=== PATIENT | female | born 1980 | race African-American/Black ===

== ENCOUNTER 2024-08-17 16:15 | Outpatient (CLI) | payer OTHER, SELFPAY ==
--- NOTE | ~2024-08-17 | XR_ITS ---
EXAMINATION: XR chest 2V DATE: 08/17/2024 16:45 INDICATION: Acute upper respiratory infection. TECHNIQUE: Frontal and lateral views of the chest were obtained. COMPARISON: None. FINDINGS: There is no pneumonia, pleural effusion, or pneumothorax. The heart size is normal. IMPRESSION: 1. No acute cardiopulmonary disease. Reviewed, dictated and finalized at location A. R DIPPER
== END 2024-08-17 16:16 | disposition home or self-care (01) ==
LOC: ANHIMG 16:25
PROVIDERS: PCP Internal Medicine; Visit Provider Internal Medicine
DX: J06.9 Acute upper respiratory infection, unspecified (principal)
CPT/HCPCS: 71046

== ENCOUNTER 2025-02-13 00:31 | Emergency (ER) | payer OTHER, MEDICAID, SELFPAY ==
--- NOTE | ~2025-02-13 | XR_ITS ---
EXAMINATION: XR chest 1V portable DATE: 02/13/2025 01:03 INDICATION: Seizure TECHNIQUE: frontal view of the chest was obtained. COMPARISON: Chest radiograph dated 08/17/2024 FINDINGS: The lungs remain clear with no focal airspace opacities, pulmonary edema, pleural effusion or pneumot horax. The cardiomediastinal silhouette is normal. IMPRESSION: 1. No acute cardiopulmonary disease. Reviewed, dictated and finalized at location A.
[2025-02-13 00:37] VITALS: BP 124/81; PULSE 90; RESP 17; TEMP 36.9; O2SAT 100
--- NOTE | 2025-02-13 00:37 | ECG_ITS ---
Test Date: 2025-02-13 00:57:37 Measurements Intervals [place] Rate: 87 P: 38 NM: 176 QRS: 20 QRSD: 76 T: 33 QT: 356 QTc: 429 Interpretive Statements SINUS RHYTHM CONSIDER INFERIOR INFARCT, AGE INDETERMINATE BASELINE ARTIFACT- I, II, III, AVR, AVL, V1-V2 ABNORMAL ECG No previous ECG available for comparison Electronically Signed On 02-13-2025 06:56:40 CDT by Stephon Regalado D.O.
[2025-02-13 00:41] VITALS: O2SAT 100
[2025-02-13 01:01] VITALS: PULSE 87
[2025-02-13 01:07] LABS: Basophils Percent Auto 0.3 % (0.2-1.2); Eosinophils Absolute Auto 0.3 K/mm3 (0-0.3); Eosinophils Percent Auto 2.5 % (0-4.4); Hematocrit 40.2 % (37.0-47.0); Hemoglobin 13.2 g/dL (12.0-15.0); Immature Granulocyte Absolute 0.06 K/mm3 (0.00-0.031); Immature Granulocyte Percent A 0.5 % (0-0.5); Lymphocytes Absolute Auto 4.71 K/mm3 (0.9-3.2); Lymphocytes Percent Auto 37.4 % (18.3-44.2); Mean Corpuscular HGB Conc 32.8 g/dl (32-36); Mean Corpuscular Volume 82.4 fl (80-100); Mean Platelet Volume 10.2 fl (7.4-10.4); Monocytes Absolute Auto 0.9 K/mm3 (0.1-0.6); Monocytes Percent Auto 7.2 % (2.6-8.5); Neutrophils Absolute Auto 6.6 K/mm3 (1.3-6.7); Neutrophils Percent Auto 52.1 % (45.5-73.1); Platelet Count Result 234 k/mm3 (150-375); Red Blood Count 4.88 M/mm3 (4.2-5.4); Red Cell Distribution Width 13.4 % (11.5-14.5); White Blood Count 12.6 K/mm3 (4.5-10.0)
[2025-02-13 01:18] LABS: Alanine Aminotransferase 28 U/L (6-35); Albumin Level 4.2 g/dL (3.5-5.1); Alkaline Phosphatase 64 U/L (38-126); Anion Gap 7 mmol/L (4-12); Aspartate Amino Transferase 31 U/L (14-36); Bilirubin,Total 0.2 mg/dL (0.2-1.3); Blood Urea Nitrogen 12 mg/dL (7-17); Calcium 9.5 mg/dL (8.4-10.2); Carbon Dioxide 26 mmol/L (22-30); Chloride 104 mmol/L (98-107); Estimated CRCL calculation 112 ml/min; Estimated Glomerular Filt Rate > 60; Glucose 95 mg/dL (65-110); Potassium 3.9 mmol/L (3.4-5.0); Sodium 137 mmol/L (137-145)
--- OUTSIDE RECORDS SUMMARY | 2025-02-13 01:32 | XMS_ITS | Clinical Summary ---
Author Organization [facility] Office Center Address [address] [place] [address] Care Team Providers Care Signal Fitter Name Role Phone Alok Lucas MD Primary Care Provider [phone] Allergies Active Allergy Reactions Criticality Noted Date Comments Bee Pollen Edema Medium 08/06/2023 Bee Venom Protein (Honey Bee) Itching,Swelling Medium 03/23/2021 Iodinated Contrast Media Itching Low 07/07/2023 Penicillins Edema,Hives High Reaction: Edema, Hives, Shrimp Other (See comments) Low 05/14/2023 Throat closing Venom-Honey Bee Itching,Swelling Medium 08/06/2023 Medications albuterol HFA (PROVENTIL HFA,VENTOLIN HFA,PROAIR HFA) 90 mcg/actuation inhaler Inhale 2 puffs every 6 (six) hours as needed 0 Active EPINEPHrine 0.3 mg/0.3 mL auto-injection syringe Auvi-Q 0.3 mg/0.3 mL injection, auto-injector 0.3 mg SC/IM x1; Info: may repeat dose x1 after 5-15min Active Airsupra 90-80 mcg/actuation HFA aerosol inhaler 2 PUFFS UP TO 4 TIMES A DAYS NEEDED ONLY MUST GO TO THE ER IF NO RELIEF AFTER THE 4TH TREATMENT. 4 Active fluticasone propionate (FLONASE) 50 mcg/actuation nasal sprayIndication s:Obstructive sleep apnea Administer 2 sprays into each nostril daily 16 g 11 5 11/19/19 26 Active Active Problems Problem Noted Date Diagnosed Date Obstructive sleep apnea 04/29/2024 Assessment & Plan (11/18/2024 3:31 PM SCANNING COORDINATOR): We discussed the oral appliance and the inspire device in the patient is going to restart CPAP therapy at 6 cm water pressure. Her DME supplier is [facility] home care services. She will follow up here in 3 months to assess her progress. She was also complaining of some sinus congestion in the left nostril and I give her a trial of Flonase to use 2 puffs in each nostril at bedtime. Assessment & Plan (04/29/2024 10:29 AM CDT): Patient continue to wear her CPAP 6 cm water pressure while sleeping. Her DME is [facility] home care. The patient was encouraged to try using an xgvs-gjc-tfxtjhi dry mouth products. Sinus pressure 04/29/2024 Assessment & Plan (04/29/2024 10:29 AM CDT): I have prescribed the patient has Z-Oli due to the sinus pressure and colored drainage. The patient will call back in if her symptoms do not improve or get worse. 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 no provoking factors elicited. 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 shaking type suspicious for non-epileptic however post-ictal state and elke's paralysis are suggestive of epilepsy. Staring type are more concerning for non-epileptic events. Currently patient is presenting with what sounds like a non-provoked seizure so we will increase her depakote. As her AEDs continue to be increased and control of her epilepsy is not obtained - consideration should be given to inpatient monitoring Resolved Problems Problem Noted Date Diagnosed Date Resolved Date Snoring 01/15/2024 04/29/2024 Assessment & Plan (01/15/2024 9:14 AM CDT): The patient presents with snoring, excessive daytime hypersomnia and insomnia. I have recommended proceeding with a nocturnal polysomnogram with a split night protocol if necessary and no MSLT. She will follow up here in 3 months. Encounters Date Type Department Care Team Description 11/18/2024 3:15 PM SCANNING COORDINATOR Office Visit [facility] Medical Group Pulmonary [address] [address] Cristian Gonzalez MD Obstructive sleep apnea (Primary Dx) from Last 3 Months Immunizations Immunization Administration Dates Next Due Tdap 07/06/2022(Deferred: Patient Ref used) Surgical History Surgery Date Site/Laterality Comments SECTION SECTION SECTION TUBAL LIGATION ROBOTIC ASSISTED HYSTERECTOMY 12/14/2017 - 01/12/2018 HELGA CHANDLER, UVS for menorrhagia. benign ENDOMETRIAL ABLATION 09/15/2016 - 09/14/2017 D&C FIRST TRIMESTER / TX INCOMPLETE / MISSED / SEPTIC / INDUCED UMBILICAL HERNIA REPAIR HERNIA REPAIR 09/15/2019 - 09/14/2020 Dr Stephenson HYSTERECTOMY Medical History Medical History Date Comments Epilepsy without status epil epticus, not intractable (HCC) Epilepsy - (Added by TW Conv ) Cataract Cataract of both eyes - (Added by TW Conv) Asthma Migraines Stroke (cerebrum) (HCC) Anemia Family History Medical History Relation Name Comments Asthma Daughter 1 Arrdavidh Irene Asthma Daughter 2 Josi [place] Alcohol abuse Father Meza Mele Hypertension Father Meza Mele Migraines Father Meza [place] Arthritis Maternal Grandmother Latoya Nava Hypertension Maternal Grandmother Latoya Nava Memory loss Maternal Grandmother Latoya Nava Anemia Mother Caitlin Nava Asthma Mother Caitlin Nava COPD Mother Caitlin Nava Hypertension Mother Caitlin Nava Migraines Mother Caitlin Nava Stroke Mother Caitlin Nava Cancer Mother's Brother Ender Nava Cancer Mother's Sister 1 Maggie Zambrano Memory loss Mother's Sister 2 Chelsy Young Ovarian cancer Other Anemia Sister 1 Marie Nava Migraines Sister 1 Marie Nava Anemia Sister 2 Lamin Nava Asthma Sister 2 Lamin Nava Diabetes Sister 2 Lamin Nava Asthma Son Charlie Bonilla Breast cancer Neg Hx Relation Name Status Comments Daughter 1 Meenakshi Bonilla Daughter 2 Josi [place] Father Derrick Shabazz Maternal Grandmother Latoya Nava Mother Caitlin Nava Mother's Brother Ender Nava Mother's Sister 1 Maggie Zambrano Mother's Sister 2 Chelsy Young Other Sister 1 Suraja Nava Sister 2 Lamin Nava Son Charlie Bonilla Social History Tobacco Use Types Packs/Day Years Used Date Smoking Tobacco: Never Cigarettes Smokeless Tobacco: Never Tobacco Cessation:Counseling Given: Not Answered Alcohol Use Standard Drinks/Week Comments Not Currently 0 (1 standard drink = 0.6 oz pur e alcohol) AUDIT-C Answer Date Recorded Q1: How often do you have a drink containing alc ohol? Never 05/08/2022 Average Number of Drinks Not on file 022 Frequency of Binge Drinking Not on file 04/16 Personal Safety Answer Date Recorded Have you ever been in or are you currently in a harmful physical or emotional relationship or is someone making you feel afraid or unsafe? Denies 02/05/2024 Comments No Sex and Gender Information Value Date Recorded Sex Assigned at Not on file Legal Sex Female 6:28 PM SCANNING COORDINATOR Gender Identity Female 12/25/2021 7:05 AM CDT Sexual Orientation Straight 12/25/2021 7: 05 AM CDT Obstetrics History Para Term AB IAB SAB Ectopic Multiple Livin g Live Births 5 3 3 Date Outcome GA Total Labor Labor/2nd/3rd Weight Sex Type Anes PTL Laly A1 A5 Name Clin Term Term Term Comments Last Filed Vital Signs Vital Sign Reading Time Taken Comments Blood Pressure 120/72 11/18/2024 3:07 PM SCANNING COORDINATOR Pulse 93 11/18/2024 3:07 PM SCANNING COORDINATOR Temperature 36.3 C (97.3 F) 11/18/2024 3:07 PM SCANNING COORDINATOR Respiratory Rate 16 11/18/2024 3:07 PM SCANNING COORDINATOR Oxygen Saturation 98% 11/18/2024 3:07 PM SCANNING COORDINATOR Inhaled Oxygen Concentration - - Weight 107.5 kg (237 lb) 11/18/2024 3:07 PM SCANNING COORDINATOR Height 170.2 cm (5' 7) 11/18/2024 3:07 PM SCANNING COORDINATOR Body Mass Index 37.12 11/18/2024 3:07 PM SCANNING COORDINATOR Plan of Treatment Health Maintenance Due Date Last Done Comments Depression Screening 1982 Hepatitis C Screening 1982 Varicella Vaccines (1 of 2 - 13+ 2-dose series) 11/25/1995 Hepatitis B Screening 2000 Pneumococcal vaccine <65 (1 of 2 - PCV) 2001 DTaP/Tdap/Td Vaccine (7 - Td or Tdap) 08/08/2021 08/08/2011, 08/15/2010, 05/15/1993, Additional history exists Breast Cancer Screening-Mammogram 12/12/2024 12/13/2023, 12/13/2023, 01/02/2023, Additional history exists Influenza Vaccine (Season Ended) 2025 Regular Well Visit/Exam 18-64 05/26/2025 05/26/2024, 05/08/2022, 03/23/2021, Additional history exists Cervical Cancer Screening Discontinued 2020, 01/23/2015, 01/17/2014 HPV Vaccines Aged Out No longer eligi ble based on patient's age to complete this topic Procedures Procedure Name Priority Date/Time Associated Diagnosis Comments SCREENING MAMMOGRAM BILATERAL W KAMALJIT Schedule Routine, Read Routine (OP Routine) 12/13/2023 9:35 AM CDT Screening mammogram, encounter for PAP AND HIGH RISK HPV, REFLEX TO GENOTYPING Routine 03/23/2021 3:23 PM CDT Well woman exam from Last 3 Months or Most Recently Relevant to Health Maintenance Results * Screening Mammogram Bilateral W Kamaljit (12/13/2023 9:35 AM CDT) Anatomical Region Laterality Modality Breast Bilateral Mammography Impressions 12/15/2023 8:53 AM CDT BI-RADS ATLAS category (overall): 1 - Negative There is no mammographic evidence of malignancy. A 1 year screening mammogram is recommended. The patient has been or will be contacted. We recommend annual screening mammography for women at average risk of breast cancer beginning at age 40, based on guidelines of the [employer] (ACR Practice Parameter for the Performance of Screening and Diagnostic Mammography) and [employer]. For women with and elevated risk of breast cancer, please refer to the ACR Practice Parameter for specific screening recommendations. The patient will be entered into a reminder system with a target due date of 1 year for her next screening exam. Narrative 12/15/2023 8:53 AM CDT Screening Mammogram Bilateral W Kamaljit: 12/13/23 The study was acquired using full field digital technology and interpreted from soft copy. 2D digital mammographic views, as well as 3D digital tomosynthesis were performed in the CC and MLO projections. CLINICAL: Screening mammogram, encounter for. No relevant medical history has been documented for this patient. History of breast cancer in Neg Hx. COMPARISONS: 06/19/2023 Diagnostic Mammogram Left W Kamaljit 01/02/2023 Screening Mammogram Bilateral W Kamaljit 01/01/2022 Diagnostic Mammogram Bilateral W Kamaljit BREAST TISSUE: The breasts have scattered areas of fibroglandular density. FINDINGS: There is no new suspicious finding in either breast on mammogram. us Self Screening Mammogram IMG MAMMO PROCEDURES Fi nal Result * Pap and High Risk HPV, reflex to Genotyping (03/23/2021 3:23 PM CDT) CLINICAL INFORMATION: SCREENING [facility] LMP HYST [facility] Previous Pap INFORMATION NOT PROVIDED [facility] [[email or web address] StudyEgg [facility] Prev. Bx INFORMATION NOT PROVIDED [facility] SOURCE: Vagina [facility] [[email or web address] Diagnostic [facility] Pap, specimen adequacy SATISFACTORY FOR EVALUATION [facility] HPV interp Negative for intraepithelial lesion or malignancy. [facility] Infection: Trichomonas vaginalis identified. [facility] Game Agent LMT, CT(ASCP) CT screening location: [place] [address] [place] [id number] [place] [address] Review vice president of instruction KMY, CT(ASCP) CT screening location: [place] [address] [place] [address] [facility] [[email or web address] Diagnostic [facility] Comment [facility] [[email or web address] Diagnostic [facility] Comment: EXPLANATORY NOTE: The Pap is a screening test for cervical cancer. It is not a diagnostic test and is subject to false negative and false positive results. It is most reliable when a satisfactory sample, regularly obtained, is submitted with relevant clinical findings and history, and when the Pap result is evaluated along with historic and current clinical information. Human papillomavirus DNA, High Risk E6/E7 Not Detected NOT DETECTED [facility] [[email or web address]] Diagnostic [facility] Comment: Not Detected High Risk HPV types (16,18,31,33,35,39,45,51,52, 56,58,59,66,68) were not detected. Other HPV types which cause anogenital lesions may be present. The significance of the other types of HPV in malignant processes has not been established. Methodology: Real Time PCR Swab 03/23/2021 3:23 PM CDT 03/26/2021 8:18 AM CDT Bradford Capps MD LAB CYTOLOGY ORDERABLES Final Result [place] [address] [place] [address] [employer] [address] [facility] [place] [address] from Last 3 Months or Most Recently Relevant to Health Maintenance Insurance [employer] [facility] H[facility]/PPO Address: [address] [address] [place] [address] [facility] Care Teams Signal Fitter Relationship Specialty Start Date End Date Alok Lucas MD [address] [facility] [address] [place] [address] PCP - General Internal Medicine 09/27/20
--- OUTSIDE RECORDS SUMMARY | 2025-02-13 01:32 | XMS_ITS | Encounter Summary ---
Author Organization [facility] Facility Care Team Providers Care Wire Coiler Machine Operator Name Role Phone Brian Rivas CORRECTIONAL PROGRAM OFFICER Primary Care Provider [phone] Shailesh Styles MD Primary Care Provider Alok Lucas MD Primary Care Provider [phone] Encounter Details Date Type Department Care Team (Latest Contact Info) Description 05/12/2017 Orders Only [facility] CLINCONV Provider, MD Will [address] [place] [id number] Social History Tobacco Use Types Packs/Day Years Used Date Smoking Tobacco: Never Comments Unknown Sex and Gender Information Value Date Recorded Sex Assigned at Not on file Legal Sex Female 6:28 PM SUPERVISOR STAGE CARPENTRY Gender Identity Female 12/25/2021 7:05 AM CDT Sexual Orientation Straight 12/25/2021 7: 05 AM CDT documented as of this encounter Plan of Treatment Not on file documented as of this encounter Procedures Procedure Name Priority Date/Time Associated Diagnosis Comments SCAN - PATHOLOGY 05/20/2017 12:0 0 AM CDT PROCEDURE - RESULT 05/12/2017 12 :00 AM CDT documented in this encounter Results * SCAN - PATHOLOGY (05/20/2017 12:00 AM CDT) Narrative 05/20/2017 12:00 AM CDT Ordered by an unspecified provider. Historical Provider Final Res ult * PROCEDURE - RESULT (05/12/2017 12:00 AM CDT) Narrative 05/12/2017 12:00 AM CDT Ordered by an unspecified provider. us Historical Provider Final Res ult documented in this encounter Visit Diagnoses Not on filedocumented in this encounter Additional Health Concerns Infection Onset Date Last Indicated Resolved Time MRSA Comment:2008 on back treated 05/09/2017 05/08/2017 05/02/2021 5:00 AM CDT documented as of this encounter Care Teams Wire Coiler Machine Operator Relationship Specialty Start Date End Date Brian Rivas NP PCP - General 10/26/18 05/02/20 Shailesh Styles MD PCP - General 05/03/20 09/26/20 Alok Lucas MD [address] [facility] [address] [place] [address] PCP - General Internal Medicine 09/27/20 documented as of this encounter
--- OUTSIDE RECORDS SUMMARY | 2025-02-13 01:32 | XMS_ITS | Encounter Summary ---
Author Organization [facility] Facility Care Team Providers Care Optic Fibre Drawer Name Role Phone Brian Rivas EQUIPMENT TECH Primary Care Provider [phone] Shailesh Styles MD Primary Care Provider [phone] Alok Lucas MD Primary Care Provider [phone] Encounter Details Date Type Department Care Team (Latest Contact Info) Description 01/06/2018 Orders Only MMG CLINCONV Provider, MD Will [address] [place] [address] Social History Tobacco Use Types Packs/Day Years Used Date Smoking Tobacco: Never Comments Unknown Sex and Gender Information Value Date Recorded Sex Assigned at Not on file Legal Sex Female 6:28 PM PLANISHING HAMMER OPERATOR Gender Identity Female 12/25/2021 7:05 AM CDT Sexual Orientation Straight 12/25/2021 7: 05 AM CDT documented as of this encounter Plan of Treatment Not on file documented as of this encounter Procedures Procedure Name Priority Date/Time Associated Diagnosis Comments SCAN - PATHOLOGY 01/06/2018 12:0 0 AM CDT documented in this encounter Results * SCAN - PATHOLOGY (01/06/2018 12:00 AM CDT) Narrative 01/06/2018 12:00 AM CDT Ordered by an unspecified provider. us Historical Provider Final Res ult documented in this encounter Visit Diagnoses Not on filedocumented in this encounter Additional Health Concerns Infection Onset Date Last Indicated Resolved Time MRSA Comment:2008 on back treated 05/09/2017 05/08/2017 05/02/2021 5:00 AM CDT documented as of this encounter Care Teams Optic Fibre Drawer Relationship Specialty Start Date End Date Brian Rivas NP PCP - General 10/26/18 05/02/20 Shailesh Styles MD PCP - General 05/03/20 09/26/20 Alok Lucas MD [address] [facility] [address] [place] [address] PCP - General Internal Medicine 09/27/20 documented as of this encounter
--- OUTSIDE RECORDS SUMMARY | 2025-02-13 01:32 | XMS_ITS | Referral Summary ---
Author Organization [facility] Medical Office Center Address [address] [place] [address] Care Team Providers Care Manager Care Management Name Role Phone Alok Lucas MD Primary Care Provider Encounters Date Type Department Care Team Description 11/18/2024 3:15 PM DUST MOP MAKER Office Visit [facility] Medical Group Pulmonary [place] [address] [place] [address] [place] [phone] Cristian Gonzalez MD Obstructive sleep apnea (Primary Dx) from Last 3 Months Allergies Active Allergy Reactions Criticality Noted Date [...] 04/29/2024 Assessment & Plan (11/18/2024 3:31 PM DUST MOP MAKER): We discussed the oral appliance and the inspire device in the patient is going to restart CPAP therapy at 6 cm water pressure. Her DME supplier is [facility] home care services. She will follow up [...] water pressure while sleeping. Her DME is [facility] home care. The patient was encouraged to try using an ysib-elh-zjiddik dry mouth products. Sinus pressure 04/29/2024 Assessment [...] will follow up here in 3 months. Immunizations Immunization Administration Dates Next Due Tdap 07/06/2022(Deferred: Patient Ref used) Social History Tobacco Use Types Packs/Day Years [...] on file Legal Sex Female 6:28 PM DUST MOP MAKER Gender Identity Female 12/25/2021 7:05 AM CDT Sexual Orientation Straight 12/25/2021 7: 05 AM CDT Last Filed Vital Signs Vital Sign Reading Time Taken Comments Blood Pressure 120/72 11/18/2024 3:07 PM DUST MOP MAKER Pulse 93 11/18/2024 3:07 PM DUST MOP MAKER Temperature 36.3 C (97.3 F) 11/18/2024 3:07 PM DUST MOP MAKER Respiratory Rate 16 11/18/2024 3:07 PM DUST MOP MAKER Oxygen Saturation 98% 11/18/2024 3:07 PM DUST MOP MAKER Inhaled Oxygen Concentration - - Weight 107.5 kg (237 lb) 11/18/2024 3:07 PM DUST MOP MAKER Height 170.2 cm (5' 7) 11/18/2024 3:07 PM DUST MOP MAKER Body Mass Index 37.12 11/18/2024 3:07 PM DUST MOP MAKER Plan of Treatment Not on file Procedures Procedure Name Priority Date/Time Associated Diagnosis Comments SCREENING MAMMOGRAM BILATERAL W MARLEEN Schedule Routine, Read Routine (OP Routine) 12/13/2023 9:35 AM CDT Screening mammogram, encounter for PAP AND HIGH RISK HPV, REFLEX TO GENOTYPING Routine 03/23/2021 3:23 PM CDT Well woman exam from Last 3 Months or Most Recently Relevant to Health Maintenance Results * Screening Mammogram Bilateral W Marleen (12/13/2023 9:35 AM CDT) Anatomical Region Laterality [...] age 40, based on guidelines of the [place] [employer] (ACR Practice Parameter for the Performance of Screening and Diagnostic Mammography) and [place]. For women with and elevated risk of breast cancer, please refer to the ACR Practice Parameter for specific screening recommendations. The patient will be entered into a reminder system with a target due date of 1 year for her next screening exam. Narrative 12/15/2023 8:53 AM CDT Screening Mammogram Bilateral W Marleen: 12/13/23 The study was acquired using full field digital technology and interpreted from soft copy. 2D digital mammographic views, as well as 3D digital tomosynthesis were performed in the CC and MLO projections. CLINICAL: Screening mammogram, encounter for. No relevant medical history has been documented for this patient. History of breast cancer in Neg Hx. COMPARISONS: 06/19/2023 Diagnostic Mammogram Left W Marleen 01/02/2023 Screening Mammogram Bilateral W Marleen 01/01/2022 Diagnostic Mammogram Bilateral W Marleen BREAST TISSUE: The breasts have scattered areas of fibroglandular density. FINDINGS: There is no new suspicious finding in either breast on mammogram. us Self Screening Mammogram IMG MAMMO PROCEDURES Fi nal Result * Pap and High Risk HPV, reflex to Genotyping (03/23/2021 3:23 PM CDT) CLINICAL INFORMATION: SCREENING [facility] LMP HYST [facility] Previous Pap INFORMATION NOT PROVIDED [facility] Prev. Bx INFORMATION NOT PROVIDED [facility] SOURCE: Vagina [facility] Pap, specimen adequacy SATISFACTORY FOR EVALUATION [facility] HPV interp Negative for intraepithelial lesion or malignancy. [facility] Infection: Trichomonas vaginalis identified. [facility] Aerial Photogrammetrist LMT, CT(ASCP) CT screening location: [place] [address] [place] [id number] [place] [address] Review complex care nurse KMY, CT(ASCP) CT screening location: [place] [address] [address] [place] [address] [place] [address] [facility] Comment: EXPLANATORY NOTE: The Pap is a [...] High Risk E6/E7 Not Detected NOT DETECTED [facility] Comment: Not Detected High Risk HPV types (16,18,31,33,35,39,45,51,52, 56,58,59,66,68) were not detected. Other HPV types which cause anogenital lesions may be present. The significance of the other types of HPV in malignant processes has not been established. Methodology: Real Time PCR Swab 03/23/2021 3:23 PM CDT 03/26/2021 8:18 AM CDT Bradford Capps MD LAB CYTOLOGY ORDERABLES Final Result [facility] [address] [place] [id number] [facility]/[place] [address] [facility] [place] [address] from Last 3 Months or Most Recently Relevant to Health Maintenance Insurance [employer] [facility] HMO/PPO Address: [address] [address] [facility] Care Teams Manager Care Management Relationship Specialty Start Date End Date Alok Lucas MD [address] [facility] [address] [place] [address] PCP - General Internal Medicine 09/27/20
[2025-02-13 01:57] LABS: Lactic Acid Reflex 0.7 mmol/L (0.7-2.0)
--- NOTE | 2025-02-13 02:12 | ED.SEIZURE ---
HPI - Seizure General Chief Complaint: Seizure Stated Complaint: seizure? respiratory distress? Time Seen by Provider: 02/13/25 01:05 History of Present Illness HPI Narrative: 44-year-old female with a past medical history including epilepsy presenting to the emergency department after potentially having a seizure last night. Patient with better normal state of health and then had some eye rolling the back of her head sensation and transient confusion. This was witnessed by the . Her last breakthrough seizure was in November. Patient states that she previously followed up with Neurology over at [facility] but is requesting a new neurologist. She is not taking any medications with previous been on Tegretol and Keppra but try to wean herself off this medication with her primary care provider and neurologist's recommendations for different lifestyle modifications. Patient was told that she might have some breakthrough seizures. She denies any recent injuries or illnesses, chest pain, shortness of breath, nausea, vomiting, abdominal pain, back pain, fever, chills. Patient is acting appropriately, no longer confused in answering all questions appropriately. Related Data Allergies Allergy/AdvReac Type Severity Reaction Status Date / Time shellfish derived Allergy Intermediate Swelling Verified 02/13/25 00:41 of Lip/Tongue/Throat Penicillins Allergy Hives Verified 02/13/25 00:41 Review of Systems Review of Systems: As reviewed above in HPI Exam Narrative: GENERAL: [Well-appearing, well-nourished, and in no acute distress.] HEAD: [Normocephalic, atraumatic.] EYES: [PERRLA and EOMI.] ENT: Nares clear, no rhinorrhea or epistaxis. Mucous membranes moist. NECK: Supple. CHEST: [Clear to auscultation. No respiratory distress.] HEART: [Regular rate and rhythm]. No murmur heard. [Normal peripheral pulses.] ABDOMEN: [Soft, nondistended], [nontender], [No rigidity or guarding] EXTREMITIES: Normal range of motion. [No edema.] SKIN: Warm, dry, no rash. NEURO: [No focal deficits]. Alert and oriented [x3.] PSYCH: [Normal mood and affect.] Course Vital Signs Vital signs: Vital Signs Temperature 36.9 C 02/13/25 00:37 Pulse Rate 90 02/13/25 00:37 Respiratory Rate 17 02/13/25 00:37 Blood Pressure 124/81 02/13/25 00:37 Pulse Oximetry 100 02/13/25 00:37 Oxygen Delivery Room Air 02/13/25 00:37 Temperature 36.9 C 02/13/25 00:37 Pulse Rate 100 02/13/25 02:50 Respiratory Rate 18 02/13/25 02:50 Blood Pressure 120/69 02/13/25 02:50 Pulse Oximetry 100 02/13/25 02:50 Oxygen Delivery Room Air 02/13/25 00:41 MDM - Seizure MDM Narrative Medical decision making narrative: 44-year-old female with history of epilepsy and asthma presenting after a potential breakthrough seizure. Patient states she has last had a breakthrough seizure in November. Presently she is asymptomatic, no longer postictal, answering all questions appropriately. No signs of trauma or injury. Seizure witnessed by at bedside who states that she had some eye fluttering and eyes rolling back read sensation problem by confusion. No generalized shaking. She is not currently on any antiepileptic medications. Follows with Neurology at [facility] but is requesting a new referral to a local neurologist. I discussed with the patient the chance that this was a true breakthrough seizure secondary to her history of epilepsy but she does not want to start any seizure medications and wishes to follow-up outpatient for this. She was agreeable to a brief workup to make sure there is no significant derangements, will dehydration or any other concerns. Laboratory studies ordered. No additional imaging studies necessary at this time she is awake alert oriented at baseline mentation. She has a small white count of 12.6 but nonspecific. No infectious signs or symptoms on historical or physical examination. Normal hemoglobin and normal platelet level. Electrolytes are unremarkable. Normal renal function. Negative lactate, normal LFTs. Chest x-ray shows no signs of pneumonia, pneumothorax or consolidation. Patient remains asymptomatic hearing is safe for discharge home with Urology outpatient follow-up. She was given contact info and referrals as well as return precautions. Medical Records Attestation: I reviewed the patient's medical records. Lab Data Attestation: I reviewed the patient's lab results. 02/13/25 00:50 02/13/25 00:50 Labs: Lab Results 02/13/25 Range/Units 00:50 WBC 12.6 H (4.5-10.0) K/mm3 RBC 4.88 (4.2-5.4) M/mm3 Hgb 13.2 (12.0-15.0) g/dL Hct 40.2 (37.0-47.0) % MCV 82.4 (80-100) fl MCH 27.0 (26-34) pg MCHC 32.8 (32-36) g/dl RDW 13.4 (11.5-14.5) % Plt Count 234 (150-375) k/mm3 MPV 10.2 (7.4-10.4) fl Immature Gran % (Auto) 0.5 (0-0.5) % Neut % (Auto) 52.1 (45.5-73.1) % Lymph % (Auto) 37.4 (18.3-44.2) % Latimer % (Auto) 7.2 (2.6-8.5) % Eos % (Auto) 2.5 (0-4.4) % Baso % (Auto) 0.3 (0.2-1.2) % Lymph # (Auto) 4.71 H (0.9-3.2) K/mm3 Latimer # (Auto) 0.9 H (0.1-0.6) K/mm3 Eos # (Auto) 0.3 (0-0.3) K/mm3 Baso # (Auto) 0.0 (0.0-0.1) K/mm3 Abs Immat Gran (auto) 0.06 H (0.00-0.031) K/mm3 Absolute Neuts (auto) 6.6 (1.3-6.7) K/mm3 Absolute Nucleated RBC 0.000 (0.0-0.012) K/mm3 Nucleated RBC % 0.0 (0.0-0.2) % Sodium 137 (137-145) mmol/L Potassium 3.9 (3.4-5.0) mmol/L Chloride 104 (98-107) mmol/L Carbon Dioxide 26 (22-30) mmol/L Anion Gap 7 (4-12) mmol/L BUN 12 (7-17) mg/dL Creatinine 0.70 (0.7-1.0) mg/dL Estim Creat Clear Calc 112 ml/min Estimated GFR > 60 (59 - ) Glucose 95 (65-110) mg/dL Lactic Acid 0.7 (0.7-2.0) mmol/L Calcium 9.5 (8.4-10.2) mg/dL Total Bilirubin 0.2 (0.2-1.3) mg/dL AST 31 (14-36) U/L ALT 28 (6-35) U/L Alkaline Phosphatase 64 (38-126) U/L Total Protein 8.0 (6.3-8.2) g/dL Albumin 4.2 (3.5-5.1) g/dL Imaging Data Attestation: I personally reviewed and interpreted this imaging study as follows: My impression: No pneumonia consolidation or pneumothorax on x-ray. Discharge Plan Discharge Clinical Impression: Breakthrough seizure Patient Disposition: Home Condition: Stable Instructions: Antibiotic Form, Epilepsy (ED) Additional Instructions: Your workup was unremarkable which is reassuring. You likely had a breakthrough seizure. Follow-up with the provided neurologist. Return with any recurrent or new/emergent concerns Patient Language: Greenlandic Follow-up/Referrals: Lance,MD Mat[place] ([place]) [Primary Care Provider] - Dieudonne Tamayo MD [Physician] - 1 Week Carol De Leon MD [Physician] - 1 Week Time of Disposition: 02:20
[2025-02-13 02:50] VITALS: BP 120/69; PULSE 100; RESP 18; O2SAT 100
== END 2025-02-13 02:50 | disposition home or self-care (01) ==
PROVIDERS: Emergency Provider Student in an Organized Health Care Education/Training Program; PCP Internal Medicine
DX: G40.909 Epilepsy, unspecified, not intractable, without status epilepticus (principal); Z88.0 Allergy status to penicillin; Z91.013 Allergy to seafood
CPT/HCPCS: 36415; 71045; 80053; 83605; 85025; 93005; 99284

== ENCOUNTER 2025-07-01 07:43 | Outpatient (CLI) | payer OTHER, MEDICAID, SELFPAY ==
--- NOTE | 2025-07-03 10:23 | P.NEURO_ITS ---
Neurology EEG Report General Information Date of Study: 07/01/25 TEST EEG DIAGNOSIS Epilepsy CONDITION OF RECORDING awake, drowsy and asleep. EEG NUMBER [id number] CLINICAL HISTORY 44 years old female with history of seizures. First seizure was when she was in 2005. Since then she has had 2 episodes per year. She thinks stress may be a trigger. She describes them as either tonic clonic seizures or focal where she spaces out. Patient also stated that her daughter and 3 of her cousins have seizures as well. EEG DESCRIPTION Basic resting occipital frequency consists of low to medium voltage 9 to 11 hertz per 2nd alpha admixed with low-voltage 15 to 18 hertz per 2nd beta activity. Alpha activity is waxing and waning posteriorly admixed with multiple movement artifacts. Hyperventilation produced normal and symmetrical buildup with eye movement artifacts as well. Low-voltage beta activity seen diffusely admixed with waxing and waning posterior alpha rhythm. Bilateral symmetrical low-voltage beta activity seen admixed with intermittent theta activity during drowsiness evolving into bilateral symmetrical sleep activity was symmetrical sleep spindles. Intermittent EKG artifact is noted. Photic stimulation prod uced normal drive. Hyperventilation produced normal and symmetrical buildup. Non paroxysmal. Nonfocal. Nonlateralizing. IMPRESSION Normal record. Clinical correlation recommended this particular tracing is not diagnostic of any focal element or paroxysmal activity, but the EEG can be normal in patients with a history of seizure disorder.
== END 2025-07-01 07:44 | disposition home or self-care (01) ==
LOC: ANHNEURO 07:45
PROVIDERS: PCP Internal Medicine; Visit Provider Psychiatry & Neurology Neurology
DX: G40.909 Epilepsy, unspecified, not intractable, without status epilepticus (principal)
CPT/HCPCS: 95816

== ENCOUNTER 2025-08-10 15:38 | Outpatient (CLI) | payer OTHER, MEDICAID, SELFPAY ==
--- NOTE | ~2025-08-10 | MR_ITS ---
EXAMINATION: MR brain/brain stem wo con COMPARISON: None HISTORY: G40.909 - Epilepsy, unspecified, not intractable, without... TECHNIQUE: Sagittal T1, axial T1, T2, FLAIR, diffusion, coronal T1 sequences of the brain were obtained without contrast. FINDINGS: The cerebellar tonsils are normal in location. There is no abnormal signal in the clivus of the cervical spine. Pituitary does not appear enlarged There is no acute infarct or hemorrhage Within the subcortical white matter of the right frontal lobe there is a 2 x 2 mm focus which is too small to characterize, no abnormal enhancement No midline shift or hydrocephalus. No extra-axial fluid collections. Appropriate flow voids are maintained Severe left maxillary sinusitis with ethmoidal sinusitis, underlying polyp formation suspected. Mastoid air cells and orbits appear unremarkable No acute infarct or hemorrhage IMPRESSION: 1. Nonspecific focus of abnormal signal subcortical white matter of the right frontal lobe, demyelinating etiologies are not excluded. Six-month follow-up recommended to assess. 2. Severe left maxillary sinusitis, CT of the sinuses is recommended. Underlying polyp formation is suspected Reviewed, dictated and finalized at location P. ITION AIDE IMPRESSION: 1. Nonspecific focus of abnormal signal subcortical white matter of the right f rontal lobe, demyelinating etiologies are not excluded. Six-month follow-up rec ommended to assess. 2. Severe left maxillary sinusitis, CT of the sinuses is recommended. Underlyin g polyp formation is suspected
--- OUTSIDE RECORDS SUMMARY | 2025-08-10 15:41 | XMS_ITS | Encounter Summary ---
Author Organization [facility]/Health system Facility Care Team Providers Care Wood Boat Builder Supervisor Name Role Phone Brian Rivas DEMAND PLANNING MANAGER Primary Care Provider [phone] Shailesh Styles MD Primary Care Provider [phone] Alok Lucas MD Primary Care Provider [phone] Encounter Details Date Type Department Care Team (Latest Contact Info) Description 05/12/2017 Orders Only [facility] CLINCONV ProviderWill MD [address] [place] [id number] Social History Tobacco Use Types Packs/Day Years Used Date Smoking Tobacco: Never Comments Unknown Sex and Gender Information Value Date Recorded Sex Assigned at Not on file Legal 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 us Historical Provider Final Res ult * PROCEDURE [...] documented as of this encounter Care Teams Wood Boat Builder Supervisor Relationship Specialty Start Date End Date Brian Rivas NP PCP - General 10/26/18 05/02/20 Shailesh Styles MD PCP - General 05/03/20 09/26/20 Alok Lucas MD [address] [facility] [address] [place] [address] PCP - General Internal Medicine 09/27/20 documented as of this encounter
--- OUTSIDE RECORDS SUMMARY | 2025-08-10 15:41 | XMS_ITS | Clinical Summary ---
Author Organization [facility] Office Center Address [address] [place] [address] Care Team Providers Care Court Bailiff Or Sheriff Name Role Phone Alok Lucas MD Primary Care Provider [phone] Allergies Active Allergy Reactions Criticality Noted Date [...] 16 g 11 5 11/19/19 26 Active metFORMIN XR (GLUCOPHAGE XR) 500 mg 24 hr tablet TAKE 1 TABLET TWICE A DAY BY ORAL ROUTE AT DINNER. 5 Active spironolactone (ALDACTONE) 50 mg tablet 5 Active Active Problems Problem Noted Date Diagnosed Date Obstructive sleep apnea 04/29/2024 Assessment & Plan (11/18/2024 3:31 PM DOMESTIC TECHNICIAN): We discussed the oral appliance and the inspire device in the patient is going to restart CPAP therapy at 6 cm water pressure. Her DME supplier is [facility] home care services. She will follow up [...] water pressure while sleeping. Her DME is [facility] home care. The patient was encouraged to try using an [id number] dry mouth products. Sinus pressure 04/29/2024 Assessment [...] Encounters Date Type Department Care Team Description 06/02/2025 Orders Only [facility] Obstetrical Gynecology [address] [place] [id number] Bradford Capps MD 06/02/2025 Results Follow-Up [facility] Obstetrical Gynecology [address] [place] [address] [address] [place] [address] Bradford Capps MD Vaginitis panel Vaginal, N. gonorrhoeae/C. trachomatis Amplification Vaginal 06/01/2025 12:36 PM CDT - 06/01/2025 11:59 PM CDT Hospital Encounter [facility] [address] [place] [address] Screening examination for STI Discharge Disposition: Discharge to home or self care 06/01/2025 9:30 AM CDT Office Visit [facility] Obstetrical Gynecology [address] [place] [address] [address] [place] [address] Bradford Capps MD Well woman exam (Primary Dx); Screening examination for STI; Encounter for screening mammogram for malignant neoplasm of breast from Last 3 Months Immunizations Immunization Administration [...] by TW Conv) Asthma Migraines Stroke (cerebrum) Anemia Family History Medical History Relation Name Comments Asthma Daughter 1 Meenakshi Bonilla Asthma Daughter 2 Josi [place] Alcohol abuse Father Derrick Sungvester Hypertension Father Derrick Mele Migraines Father Derrick Sungvester Arthritis Maternal Grandmother Latoya Nava Hypertension Maternal Grandmother Latoya Yinam Memory loss Maternal Grandmother Latoya Nava Anemia Mother Caitlin Nava Asthma Mother Caitlin Nava COPD Mother Caitlin Nava Hypertension Mother Caitlin Nava Migraines Mother Caitlin Nava Stroke Mother Caitlin Nava Cancer Mother's Brother Ender Nava Cancer Mother's Sister 1 Maggie [place] Memory loss Mother's Sister 2 Chelsy Young Ovarian cancer Other Anemia Sister 1 TiShunda Nava Migraines Sister 1 TiShunda Nava Anemia Sister 2 Isetta Nava Asthma Sister 2 Isetta Nava Diabetes Sister 2 Isetta Nava Asthma Son Charlie Bonilla Breast cancer Neg Hx Relation Name Status Comments Daughter 1 Meenakshi Bonilla Daughter 2 Josi [place] Father Derrick Cyrter Maternal Grandmother Latoya Yinam Mother Caitlin Nava Mother's Brother Ender Nava Mother's Sister 1 Maggie [place] Mother's Sister 2 Chelsy Young Other Sister 1 TiShunda Nava Sister 2 Isjermaine Yinam Son Charlie Bonilla Social History Tobacco Use [...] Average Number of Drinks Not on file 08/24/2 022 Frequency of Binge Drinking Not on file 04/16 Personal Safety Answer Date Recorded Have you ever been in or are you currently in a harmful physical or emotional relationship or is someone making you feel afraid or unsafe? Denies 02/05/2024 Comments No Sex and Gender Information Value Date Recorded Sex Assigned at Not on file Legal Sex Female 6:28 PM DOMESTIC TECHNICIAN Gender Identity Female 12/25/2021 7:05 AM CDT Sexual Orientation Straight 12/25/2021 7: 05 AM CDT Obstetrics History Para Term AB IAB SAB Ectopic Multiple Livin g Live Births 5 3 3 Date Outcome GA Total Labor Labor/2nd/3rd Weight Sex Type Anes PTL Laly A1 A5 Name Clin Term Term Term Comments Last Filed Vital Signs Vital Sign Reading Time Taken Comments Blood Pressure 128/72 06/01/2025 9:22 AM CDT Pulse 93 11/18/2024 3:07 PM DOMESTIC TECHNICIAN Temperature 36.3 C (97.3 F) 11/18/2024 3:07 PM DOMESTIC TECHNICIAN Respiratory Rate 16 11/18/2024 3:07 PM DOMESTIC TECHNICIAN Oxygen Saturation 98% 11/18/2024 3:07 PM DOMESTIC TECHNICIAN Inhaled Oxygen Concentration - - Weight 112 kg (247 lb) 06/01/2025 9:22 AM CDT Height 170.2 cm (5' 7) 06/01/2025 9:22 AM CDT Body Mass Index 38.69 06/01/2025 9:22 AM CDT Plan of Treatment Health Maintenance Due Date Last Done Comments Depression Screening 1982 Hepatitis C Screening 1982 Varicella Vaccines (1 of 2 - 13+ 2-dose series) 11/25/1995 Hepatitis B Screening 2000 Pneumococcal vaccine <65 (1 of 2 - PCV) 2001 HPV Vaccines (1 - 3-dose SCD M series) 2009 DTaP/Tdap/Td Vaccine (7 - Td or Tdap) 08/08/2021 08/08/2011, 08/15/2010, 05/15/1993, Additional history exists Influenza Vaccine (#1) 2025 Breast Cancer Screening-Mammogram 04/25/2026 04/25/2025, 12/13/2023, 12/13/2023, Additional history exists Regular Well Visit/Exam 18-64 06/01/2026, 05/26/2024, 05/08/2022, Additional history exists Cervical Cancer Screening Discontinued 2020, 01/23/2015, 01/17/2014 Procedures Procedure Name Priority Date/Time Associated Diagnosis Comments N. GONORRHOEAE/C. TRACHOMATIS AMPLIFICATION Routine 06/01/2025 9:55 AM CDT Screening examination for STI VAGINITIS PANEL Routine 06/01/2025 9:55 AM CDT Screening examination for STI SCREENING MAMMOGRAM BILATERAL W KAMALJIT Schedule Routine, Read Routine (OP Routine) 04/25/2025 3:52 PM CDT Encounter for screening mammogram for malignant neoplasm of breast PAP AND HIGH RISK HPV, REFLEX TO GENOTYPING Routine 03/23/2021 3:23 PM CDT Well woman exam from Last 3 Months or Most Recently Relevant to Health Maintenance Results * N. gonorrhoeae/C. trachomatis Amplification Vaginal (06/01/2025 9:55 AM CDT) C. trachomatis Not Detected [facility] Comment:Testing performed by : [facility], [address] [place]., [address] N. gonorrhoeae Not Detected [facility] Comment: Interpretive Data This assay detects Chlamydia trachomatis and Neisseria gonorrhoeae by nucleic acid amplification testing (NAAT). This assay has been cleared by the [place] Food and Drug administration. The performance characteristics of this test have been verified by the [facility] Molecular Infectious Disease laboratory. The performance characteristics of this test have not been evaluated in individuals less than 14 years of age. Current Interpretive Data was last revised on 2023. Testing performed by: [facility], [address] [place]., [address] Vaginal (None) 06/01/2025 9: 55 AM CDT 06/01/2025 7:33 PM CDT Bradford Capps MD LAB MICROBIOLOGY - GENE RAL ORDERABLES Final Result [facility] [place] [place] [address] [facility] * (ABNORMAL) Vaginitis panel Vaginal (06/01/2025 9:55 AM CDT) Bacterial Vaginosis Detected(A) Not Detected Comment:The BV organism targ ets of this test can be commensal in women; results should be considered in conjunction with clinical presentation to determine the disease status. Cindy group Detected(A) Not Detected [facility] Comment:Cindy species can be present as commensal organisms in women; results should be considered in conjunction with clinical presentation to determine the disease status. Cindy glabrata/ krusei Not Detected Not Detected [facility] Trichomonas DNA Not Detected Not Detected [facility] Vaginal 06/01/2025 9:55 AM CDT 06/01/2025 3:18 PM CDT Narrative [facility] - 06/01/2025 4:31 PM CDT The [employer] Xpert Xpress MVP test detects DNA targets from anaerobic bacteria associated with bacterial vaginosis, Cindy species associated with vulvovaginal candidiasis, and Trichomonas vaginalis by nucleic acid amplification testing (NAAT). Results should be interpreted in conjunction with other clinical data. This test cannot be used to assess therapeutic success or failure because target nucleic acids may persist following antimicrobial therapy. This test has been cleared by the [place] Food and Drug Administration to aid in the diagnosis of vaginal infections in symptomatic women ages 14 and older. The performance characteristics of this test have been verified by the [facility]. us Bradford Capps MD LAB MICROBIOLOGY - GENE RAL ORDERABLES Final Result [facility] [place] [address] * Screening Mammogram Bilateral W Kamaljit (04/25/2025 3:52 PM CDT) Anatomical Region Laterality Modality Breast Bilateral Mammography Impressions 04/25/2025 4:11 PM CDT BI-RADS ATLAS category (overall): 1 - Negative There is no mammographic evidence of malignancy. A 1 year screening mammogram is recommended. The patient has been or will be contacted. We recommend annual screening mammography for women at average risk of breast cancer beginning at age 40, based on guidelines of the [employer] [employer] (ACR Practice Parameter for the Performance of Screening and Diagnostic Mammography) and [place]. For women with and elevated risk of breast cancer, please refer to the ACR Practice Parameter for specific screening recommendations. The patient will be entered into a reminder system with a target due date of 1 year for her next screening exam. Narrative 04/25/2025 4:11 PM CDT Screening Mammogram Bilateral W Kamaljit: 04/25/25 The study was acquired using full field digital technology and interpreted from soft copy. 2D digital mammographic views, as well as 3D digital tomosynthesis were performed in the CC and MLO projections. CLINICAL: Encounter for screening mammogram for malignant neoplasm of breast. No relevant medical history has been documented for this patient. History of breast cancer in Neg Hx. No comparisons were made when reading this study. BREAST TISSUE: There are scattered areas of fibroglandular density. FINDINGS: There is no new suspicious finding in either breast on mammogram. Alok Lucas MD IMG MAMMO PROCEDURES Final Resul t * Pap and High Risk HPV, reflex to Genotyping (03/23/2021 3:23 PM CDT) CLINICAL INFORMATION: SCREENING [facility] LMP HYST [facility] Previous Pap INFORMATION NOT PROVIDED [facility] Prev. Bx INFORMATION NOT PROVIDED [facility] SOURCE: Vagina [facility] Pap, specimen adequacy SATISFACTORY FOR EVALUATION [facility] HPV interp Negative for intraepithelial lesion or malignancy. [facility] Infection: Trichomonas vaginalis identified. [facility] Food Processing Plant Manager LMT, CT(ASCP) CT screening location: [facility] [address] [place] [address] Review tool lathe operator KMY, CT(ASCP) CT screening location: [place] [address] [address] [place] [address] [facility] Comment [facility] Comment: EXPLANATORY NOTE: The Pap is a [...] High Risk E6/E7 Not Detected NOT DETECTED [facility] s/[facility] Comment: Not Detected High Risk HPV types (16,18,31,33,35,39,45,51,52, 56,58,59,66,68) were not detected. Other HPV types which cause anogenital lesions may be present. The significance of the other types of HPV in malignant processes has not been established. Methodology: Real Time PCR Swab 03/23/2021 3:23 PM CDT 03/26/2021 8:18 AM CDT Bradford Capps MD LAB CYTOLOGY ORDERABLES Final Result [place] [address] [address] [place] [id number] [facility] [address] [facility] [place] [address] from Last 3 Months or Most Recently Relevant to Health Maintenance Insurance [employer] [facility] [place] [place] [address] [facility] Care Teams Court Bailiff Or Sheriff Relationship Specialty Start Date End Date Alok Lucas MD [address] [facility] [address] [place] [address] PCP - General Internal Medicine 09/27/20
--- OUTSIDE RECORDS SUMMARY | 2025-08-10 15:41 | XMS_ITS | Encounter Summary ---
Author Organization [facility] Facility Care Team Providers Care Program Project Manager Name Role Phone Brian Rivas CASTING AND PASTING SUPERVISOR Primary Care Provider [phone] Shailesh Styles MD Primary Care Provider [phone] Alok Lucas MD Primary Care Provider [phone] Encounter Details Date Type Department Care Team (Latest Contact Info) Description 01/06/2018 Orders Only [facility] CLINCONV Provider, MD Will [address] [place] [address] Social History Tobacco Use Types Packs/Day Years Used Date Smoking Tobacco: Never Comments Unknown Sex and Gender Information Value Date Recorded Sex Assigned at Not on file Legal Sex Female 6:28 PM BOX SHOOK PATCHER Gender Identity Female 12/25/2021 7:05 AM CDT [...] unspecified provider. Historical Provider Final Res ult documented in this encounter Visit Diagnoses Not on filedocumented in this encounter Additional Health Concerns Infection Onset Date Last Indicated Resolved Time MRSA Comment:2008 on back treated 05/09/2017 05/08/2017 05/02/2021 5:00 AM CDT documented as of this encounter Care Teams Program Project Manager Relationship Specialty Start Date End Date Brian Rivas NP PCP - General 10/26/18 05/02/20 Shailesh Styles MD PCP - General 05/03/20 09/26/20 Alok Lucas MD [address] [address] PCP - General Internal Medicine 09/27/20 documented as of this encounter
--- OUTSIDE RECORDS SUMMARY | 2025-08-10 15:41 | XMS_ITS | Continuity of Care Document ---
Author Organization [facility], [employer] Address [address] [place] [address] [place] [address] Assessment Encounter Date Assessment Date Assessment LastModified by Organization Details LastModified Time 05/25/2025 05/25/2025 Recommends healthy nutrition, including a diet rich in fruits and vegetables, minimizing simple carbohydrates, salt, and saturated fats. Encouraged regular cardiovascular exercise such as walking at least 30 minutes daily, 5 times per week. [facility] Not available 05/25/2025 19:23:07 Plan of Treatment Reminders Order Date Submit Date Provider Last Modified By Organization Details Last Modified Time Details Appointments ESTABLISH ED PATIENT 15 2025 07:30A Shola Lucas MD Not available Not available Not available Lab hemoglobi n A1C/hemog lobin total, QN, blood [address] [facility], [address] [facility], [place], [address], 05/25/2025 19:25:44 lipid panel, serum [address] [employer] [facility], [address] [facility], [place], [address], 05/25/2025 19:25:43 CMP, serum or plasma [address] [facility], [address] [facility], [place], [address], 05/25/2025 19:25:44 iron + TIBC + ferritin, serum [address] [employer] [facility], [address] [facility], [place], [address], 05/25/2025 19:25:44 TSH + free T4, serum [address], [address] [facility], [place], [address], 05/25/2025 19:25:43 T3, free, serum or plasma [address], [address] [facility], [place], [address], 05/25/2025 19:25:43 fecal occult blood, immunoass ay, stool [address], [address] [place] [address], [place], [address], 05/25/2025 19:25:43 CBC w/ auto diff [address], [address] [place] [address], [place], [address], 05/25/2025 19:25:44 Referral otolaryng ologist referral 2024 [facility], [address] [place], [address], 06/10/2025 23:16:00 Procedures None recorded. Surgeries None recorded. Imaging MAMMO, screening , digital, bilateral [email or web address] [place] [address] Patient Access Centralized Scheduling, Centralized Scheduling, [address] [place], [address], 06/01/2025 08:16:24 Medication Orders metformin ER 500 mg tablet,ex tended release [address] [facility][id number], [address] [place], [address], 05/25/2025 19:25:47 Nurtec ODT 75 mg disintegr ating tablet [address] [facility][id number], [address] [place], [address], 05/25/2025 19:25:47 albuterol sulfate HFA 90 mcg/actua tion aerosol inhaler 2024 025 [id number] [address] [place], [address], 05/25/2025 19:25:46 Patient TargetsNo targets recorded. 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 [email or web address] [address], [address], 05/25/2025 19:26:36 Result Notes None recorded. Problems Name Problem SNOMED Code Status Onset Date Resolution Date Notes Provider Name and Address Organization Details Recorded Time Anemia 497518800 Active 2012 Karley gallegos [facility] 0 10:19:00 Seizure disorder 365652161 Active 2022 MD Guanako Rogers2 [facility] [address], [place], [address] , [facility] 3 14:01:08 Migraine 37557872 Active 2022 MD Izabella Rogers [facility] [address], [place], [address] , [facility] 3 14:01:28 Asthma 169585267 Active 2022 MD Izabella Rogers [address], [place], [place], , [facility] 3 14:01:28 Hyperlipid emia 72855838 Active 2022 MD Izabella Rogers [address], [place], , [facility] 3 14:01:28 Impaired glucose tolerance 0299930 Active 2022 MD Izabella Rogers [address], [place], , [facility] 3 14:01:28 Anxiety 24330462 Active 2022 MD Izabella Rogers [address], [place], , [facility] 3 14:04:03 Edema 523448462 Active 2022 MD Izabella Rogers [address], [place], , [facility] 3 17:53:44 Sprain of right ankle 9474395954338 9105 Active 2022 MD Izabella Rogers [address], [place], , [facility] 3 18:06:01 Acute pharyngiti s 410868333 Active 2022 MD Izabella Rogers [address], [place], , [facility] 3 18:46:44 Backache 896693326 Active 2022 MD Izabella Rogers [address], [place], , [facility] 3 12:39:37 Leukocytos is 376125476 Active 2022 MD Izabella Rogers [address], [place], [address] , [facility] 3 17:55:55 Abdominal pain 04056351 Active 2022 MD Izabella Rogers [facility] [address], [place], [address] , [facility] 3 11:08:35 Upper abdominal pain 45842458 Active 2022 MD Izabella Rogers [facility] [address], [place], [address] , [facility] 3 11:11:46 Upper respirator y infection 96043134 Active 2022 MD Izabella Rogers [facility] [address], [place], [address] , [facility] 3 08:34:37 Atypical chest pain 003237459 Active 2022 MD Izabella Rogers [facility] [address], [place], [address] , [facility] 3 09:26:44 Problem Notes None recorded. Procedures Surgical History Date Name Laterality Status Provider Name and Address Organization Details Recorded Time 04/25/20 Date of Last Mammogram completed [facility] 05/25/2025 18:23:26 04/03/20 Date of Last Pap Smear completed Ashly Nadine [facility] 06/28/2022 08:59:24 08/06/20 11 Caesarean Section completed [facility] 04/25/2020 14:50:38 06/06/20 09 Hernia Repair completed MD Izabella Rogers [address], [place], [address], [facility] 04/11/2022 19:14:27 12/29/19 09 Caesarean Section completed [facility] 04/25/2020 14:50:35 11/22/19 06 Caesarean Section completed [facility] 04/25/2020 14:50:44 Partial Hysterectomy completed MD Izabella Rogers [address], [place], [address], [facility] 09/10/2021 17:06:21 Tubal Ligation completed Alok Lucas MD [address] [facility] [address], [place], [address], [facility] 09/10/2021 17:06:46 endometrial ablation completed Alok Lucas MD [address] [facility] [address], [place], [address], [facility] 04/11/2022 19:13:43 Imaging Results None recorded. Procedure Notes None recorded. Medical Equipment None Reported. Allergies Allergen ID Allergen Name Allergen Category Reaction Reaction Severity Criticality Documentation Date Start Date Code Code System Note Provider Name and Address Organization Details Recorded Time 40564 honey bee venom environme nt itching swelling Not available Not available high 06/01/20252020 71756 7 RxNorm Not Available [employer] - External [employer] - prod 5 10:55:03 38100 Iodinated contrast media (substanc e) medicatio n itching Not available low 06/01/20252022 39784 2004 SNOMED Not Available [facility] - External Data [employer] - prod 5 10:55:03 81202 shrimp allergeni c extract food other Not available low 06/01/20252022 14117 2 RxNorm Throa t closi ng Not Available [facility] External Data Service - prod 5 10:55:03 9189 Product containin g penicilli n (product) medicatio n hives rash Not available Not available Not available 04/25/2020 75191 8001 SNOMED Karley Patrick [facility] 0 10:14:00 9190 bee pollen environme nt,medica tion edema Not available Not available 04/25/2020 08129 7 RxNorm Karley Patrick [facility] 0 14:45:43 9873 honey bee venom medicatio n itching swelling Not available Not available Not available 03/23/2021 72290 7 RxNorm Katie Leatherwo od [facility] 1 09:41:05 Medications Name Sig Start Date Stop Date Status Note LastModified by Organization Details LastModified Time cyclobenz aprine 10 mg tablet TAKE 1 TABLET BY MOUTH TWICE DAILY NEEDED FOR MUSCLE SPASMS 02/23 completed Not Available Not Available Not Available clindamyc in HCl 300 mg capsule 06/09 completed Not Available Not Available Not Available azithromy hollis 250 mg tablet TAKE 2 TABLETS BY MOUTH TODAY, THEN TAKE 1 TABLET DAILY FOR 4 DAYS DIRECTED 02/20 completed Not Available Not Available Not Available fluconazo le 150 mg tablet TAKE 1 TABLET (150 MG TOTAL) BY MOUTH ONCE FOR 1 DOSE. active Not Available Not Available No t Available meloxicam 15 mg tablet TAKE 1 TABLET BY MOUTH EVERY DAY 04/10 completed Not Available Not Available Not Available prednison e 20 mg tablet TAKE 3 TABLETS BY MOUTH EVERY DAY IN THE MORNING 02/23 completed Not Available Not Available Not Available metronida zole 500 mg tablet TAKE 1 TABLET BY MOUTH TWICE A DAY FOR 7 DAYS active Not Available Not Available No t Available acetamino phen 300 mg-codein e 30 mg tablet 05/18 completed Not Available Not Available Not Available sulfameth oxazole 800 mg-trimet hoprim 160 mg tablet TAKE 1 TABLET BY MOUTH TWICE DAILY FOR 3 DAYS 06/09 completed Not Available Not Available Not Available tramadol 50 mg tablet 1 tab taken (togethe r w/ 1 tab of Tylenol 500 mg) once up to twice a day as needed 11/16 completed Not Available Not Available Not Available lamotrigi ne 25 mg tablet active Not Available Not Available Not Available baclofen 10 mg tablet 1 tab once, up to 3 times a day as needed; can cause drowsine ss 05/21 completed Not Available Not Available Not Available triamcino lone acetonide 0.1 % topical ointment APPLY A THIN LAYER TO THE AFFECTED AREA(S) BY TOPICAL ROUTE 2 TIMES PER DAY 05/03 completed Not Available Not Available Not Available divalproe x 125 mg tablet,de layed release TAKE 1 TABLET BY MOUTH TWICE A DAY active Not Available Not Available No t Available omeprazol e 20 mg capsule,d elayed release TAKE 1 CAPSULE BY MOUTH DAILY 02/23 completed Not Available Not Available Not Available Banophen 25 mg capsule 2 pills x 1 dose; can cause drowsine ss 02/23 completed Not Available Not Available Not Available monteluka st 10 mg tablet 05/03 completed Not Available Not Available Not Available methylpre dnisolone 4 mg tablets in a dose pack ud 02/23 completed Not Available Not Available Not Available albuterol sulfate HFA 90 mcg/actua tion aerosol inhaler PLEASE SEE ATTACHED FOR DETAILED DIRECTIO NS active Not Available Not Available No t Available norethikal krafte (contrace ptive) 0.35 mg tablet 02/23 completed Not Available Not Available Not Available cefdinir 300 mg capsule Take 1 capsule every 12 hours by oral route. 02/23 completed Not Available Not Available Not Available fluticaso ne propionat e 50 mcg/actua tion nasal spray,camila pension SPRAY 2 SPRAYS INTO EACH NOSTRIL EVERY DAY active Not Available Not Available No t Available metformin ER 500 mg tablet,ex tended release 24 hr TAKE 1 TABLET TWICE A DAY BY ORAL ROUTE AT DINNER. active Not Available Not Available No t Available naproxen 500 mg tablet 02/23 completed Not Available Not Available Not Available spironola ctone 50 mg tablet TAKE 1 TABLET EVERY DAY BY ORAL ROUTE IN THE MORNING. 2024 active Not Available Not Available Not Avai lable neomycin- polymyxin -hydrocor t 3.5 mg-10,000 unit/mL-1 % ear drops,camila p INSTILL 4 DROPS INTO AFFECTED EAR(S) 3 TIMES A DAY 02/23 completed Not Available Not Available Not Available Symbicort 160 mcg-4.5 mcg/actua tion HFA aerosol inhaler 05/03 completed Not Available Not Available Not Available Mucinex 1,200 mg tablet, extended release Take 1 tablet every 12 hours by oral route. 02/23 completed Not Available Not Available Not Available Auvi-Q 0.3 mg/0.3 mL injection , auto-inje ctor 0.3 mg SC/IM x1; Info: may repeat dose x1 after 5-15min 2022 active -- epinephr ine Not Available Not Available Not Available albuterol sulf 90 mcg/actua tion breath activated powder inhaler,s ensor Inhale 2 puffs every 4 hours by inhalati on route. 11/06 completed Not Available Not Available Not Available Nurtec ODT 75 mg disintegr ating tablet TAKE 1 TABLET BY MOUTH NEEDED active Not Available Not Available No t Available Seglentis 44 mg-56 mg tablet Take 2 tablets every 12 hours by oral route. 02/23 completed Not Available Not Available Not Available Airsupra 90 mcg-80 mcg/actua tion HFA aerosol inhaler 2 PUFFS UP TO 4 TIMES A DAYS NEEDED ONLY MUST GO TO THE ER IF NO RELIEF AFTER THE 4TH TREATMEN T. 05/25 completed -- gets more SOB or anxious while on it --> will switch back to plain Albutero l Not Available Not Available Not Available Vitals Date Recorded Body height Heart rate Respiratory rate Body temperature Body mass index (BMI) Body weight Systolic And Diastolic Provider Name and Address Organization Details Last Updated DateTime 5 170.18 cm 83 /min 16 /min 97.5 [degF] 38.4 kg/m2 571538. 13 g 119/77 mm[Hg] Ashly Mccoy [facility] 5 18:22:42 Social History Question Answer Notes LastModified by Organizat ion Details LastModified Time Tobacco Smoking Status Never Smoker Not Available [facility] 06/30/2020 03:11:41 Do You Have An Advance Directive? No [email or web address] Information n ot available 11/18/2022 What Is Your Level Of Caffeine Consumption? None [email or web address] Information not available 11/18/2022 How Much Tobacco Do You Chew? None [id number] Information not available 06/30/2020 What Is Your Code Status? Full Code [email or web address] Information not available 11/18/2022 In The 14 Days Before Symptom Onset, Have You Had Close Contact With A Laboratory-confirm ed COVID-19 While That Case Was Ill? No [email or web address] Information n ot available 11/18/2022 In The 14 Days Before Symptom Onset, Have You Had Close Contact With A Person Who Is Under Investigation For COVID-19 While That Person Was Ill? No [email or web address] Information not available 11/18/2022 Have You Been To An Area Known To Be High Risk For COVID-19? No [email or web address] Information not available 11/18/2022 What Type Of Diet Are You Following? REGULAR [email or web address] Information n ot available 11/18/2022 Which Illicit Or Recreational Drugs Have You Used? None [id number] Information not available 06/30/2020 Marital Status Single [email or web address] Informatio n not available 11/18/2022 What Was The Date Of Your Most Recent Tobacco Screening? 05/25/2025 [email or web address] Information not available 05/25/2025 How Much Tobacco Do You Smoke? No [id number] Information not available 06/30/2020 How Many Years Have You Smoked Tobacco? 0 [email or web address] Information not available 11/18/2022 Sex: Unknown Functional Status Question Answer Note LastModified by Organizat ion Details LastModified Time Do you use any illicit or recreational drugs? No [email or web address] Information not available 11/18/2022 Do you or have you ever used any other forms of tobacco or nicotine? No [email or web address] Information not available 11/18/2022 What is your level of alcohol consumption? Occasional [email or web address] Information not available 03/23/2021 Do you or have you ever used smokeless tobacco? Never used smokeless tobacco [email or web address] Information not available 11/18/2022 What is your occupation? Other [email or web address] Information not available 02/25/2025 Do you or have you ever used e-cigarettes or vape? Never used electronic cigarettes [email or web address] Information not available 11/18/2022 What is your exercise level? Moderate -- walks 3 miles a day; 4 days a week [email or web address] Information not available 11/18/2022 Mental Status None recorded. Family History Relationship Description Onset Age of this Age Resolved Age Notes LastModified by Organization Details LastModified Time Maternal Grandfather Malignant neoplasm of lung smoker - unsure of age. [email or web address] Not available 05/25/2025 16:44:06 Maternal Uncle Heart disease CAD @ 57 y/o [email or web address] Not available 04/25/2020 10:15:40 Maternal Grandmother Arthritis jbuske Not available 05/16 16:44:06 Maternal Grandmother Osteoporosis jbuske Not available 0 05/25/2025 16:44:06 Maternal Grandmother Diabetes mellitus lcallison Not available 2019 14:59:35 Paternal Grandmother Arthritis jbuske Not available 05/16 16:44:06 Father Alcoholism jbuske Not available 05/25/2025 16:44:06 Sister Depressive disorder jbuske Not available 2024 16:44:06 Sister Diabetes mellitus [email or web address] Not available 2019 14:48:09 Sister Asthma jbuske Not available 06/2025 16:44:06 Mother Asthma jbuske Not available 06/2025 16:44:06 Mother Cerebrovascu lar accident @ 21 y/o--- - during delive ry jbuske Not available 05/25/2025 16:44:06 Mother Chronic obstructive pulmonary disease jbuske Not available 2024 16:44:06 Mother Osteoporosis jbuske Not availab le 05/25/2025 16:44:06 Medical History No medical history recorded. Gynecological History Statement/Question Response Date of Last Pap Smear 04/03/2022 Date of Last Mammogram 04/25/2025 Obstetrics History GPAL:G 0 P 0 0 0 0 Past Encounters Encounter ID Performer Location Encounter Start Date Encounter Closed Date Diagnosis/Indication Diagnosis SNOMED-CT Code Diagnosis ICD10 Code Diagnosis IMO Codes Diagnosis Note [id number] [facility]ok Lucas [facility] [address] [address] 05/25/2025 16:43:46 05/25/2025 19:28:33 Seizure disorder 203253161 G40.909 29030 -- last Seizure (staring episode) was December 2024 (pt advised no driving within 6 months from a seizure episode)-- still sz free since Neurologis t took her off Depakote-- pt has appt scheduled w/ Neurologis t Dr Carol De Leon on 06/14/25 but will be on cancelatio n list Mild inter mittent asthma 478774700 J45.20 2761230 -- spirometry done 08/30/24-- last inhaler use was in the beginning of January 2025 Hyperlipidemia 53269543 E78.5 -- you will need to limit Carbohydra hernán intake to 40 gram per meal & also a maximum of 120 grams a day.-- Examples of Carbohydra hernán are: ice-cream, sweet sugar treats, rice, potatoes, sweet potatoes (yams), bananas, corn products (popcorn, corn muffin, corn bread, cornflakes , corn ), oats, flour products (pasta, bread, bagel, muffins, donuts, biscuits, cookies, crackers, pancakes, waffle, cakes, pies &/or Alcohol.-- check lab(s) around 08/25/25 Anemia 046524916 D64.9 -- normalized on labs done on 06/14/22-- no cycles since Lap Hysterecto my in December 2017-- check lab(s) around 08/25/25 Sleep apnea 89404431 G47 .30 [id number] -- issued by Sleep specialist Dr Cristian Gonzalez-- pt states she cannot tolerate the CPAP mask due to claustroph obia Migraine 37995665 G43.90 9 -- markedly improved since she eliminated a lot of stress from her life (by cutting out certain people in her life) Impaired g lucose tolerance 9930622 R73.02 A1c 5.9 (04/20/21) --> 5.8 (12/12/21) ) --> 5.7 (06/14/22) --> 5.9 (04/10/23) -- check lab(s) around 08/25/25 Anxiety 90659483 F41.9 -- doing well in spite of not on any meds 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 -- no recurrence Severe obesity 606662543 1 9104 E66.812 E66.01 Z68.38 8506355939 -- advised weight loss; no weigh change since her last visit-- pt's BMI todayis 38.4 (ideal is between 20-25) Hepatitis C screening 41 7519806 Z11.59 -- tested negative for Hepatitis C on 04/25/20 HIV screening 088383314 Z11.4 -- tested negative for HIV on 06/04/23 Active or passive immunization 871317063 Z23 -- pt does not want Tdap, Flu or Pneumonia shot Screening for malignant neoplasm of breast 189369715 Z12.31 -- screening mammogram done 04/25/25 Gynecologi c examination 86686701 Z01.419 -- pt reports she has appt with Pearl Peller Dr Bradford Capps on Fri06/01/25 Nasal obstruction 855784 000 J34.89 46590 (left nose -- blows out'patch every AM) Health Concerns Section Related Observation LastModified by Organization Detai ls LastModified Time None Recorded Concern Status LastModified by Organization Details LastModified Time None Recorded Payers Encounter Date Sequence Insurance Name Policy Number Policy Hansen Covered Member ID Hansen Member ID Guarantor Name 05/25/2025 1 [facility] [id number] Brittanyfaviola Yinam [id number] Brittany Nava Notes Date Note Type Note Provider Name and Address Organization Details Recorded Time 05/25/2025 text/html Pt comes in for f/u of [place] (no flares), HLD, Anemia, STEVE, Sz, Migraines (no increase or change) and weight. Pt c/o blowing out 'patches' from left nose every AM (no epistaxis or pain). Pt feels well and has no c/o. Pt has no new sx and no increasing sx. Patient denies any jaw or neck discomfort, left arm pain/left arm discomfort, chest discomfort/pain, diaphoresis, breathing symptoms/chest tightness, indigestion sx, n/v, any angina equivalent symptoms, etc. Alok Lucas MD [address], [place], [address], [facility] 05/25/2025 19:28:47 OBGyn Episode No OBEpisode recorded.
--- OUTSIDE RECORDS SUMMARY | 2025-08-10 15:41 | XMS_ITS | Data Portability ---
Author Organization [facility], [employer] Address [address] [address] Assessment Encounter Date Assessment Date Assessment LastModified by Organization Details LastModified Time 02/11/2024 02/11/2024 Patient presente d for follow up. Studies ordered as below. Discussed plan with patient/caregiver , who expressed understanding. Follow up as noted below. Not available 02/11/2024 13:53:18 08/16/2024 08/16/2024 Patient presente d to office today for their Medicare Annual Wellness Visit. Education was provided on healthy nutrition, including a diet rich in fruits and vegetables, minimizing simple carbohydrates, salt, and saturated fats. Encouraged regular cardiovascular exercise such as walking at least 30 minutes daily, 5 times per week. Emphasized preventive health measures and educated pt on fall prevention and community-based lifestyle interventions to help reduce health risks and promote healthy living. Not available 08/16/2024 20:53:37 02/23/2025 02/23/2025 Recommends healthy nutrition, including a diet rich in fruits and vegetables, minimizing simple carbohydrates, salt, and saturated fats. Encouraged regular cardiovascular exercise such as walking at least 30 minutes daily, 5 times per week. Not available 02/23/2025 19:11:40 05/25/2025 05/25/2025 Recommends healthy nutrition, including a diet rich in fruits and vegetables, minimizing simple carbohydrates, salt, and saturated fats. Encouraged regular cardiovascular exercise such as walking at least 30 minutes daily, 5 times per week. Not available 05/25/2025 19:23:07 Plan of Treatment Reminders Order Date Submit Date Provider Last Modified By Organization Details Last Modified Time Details Appointments ESTABLISH ED PATIENT 15 2025 07:30A Shola Lucas MD Not available Not available Not available Lab hemoglobi n A1C/hemog lobin total, QN, blood [address] [place] [address], [address] [place] [address], [id number], 05/25/2025 19:25:44 lipid panel, serum [address] [place] [address], [address] [place] [address], [id number], 05/25/2025 19:25:43 CMP, serum or plasma [address] [place] [address], [address] [place] [address], [id number], 05/25/2025 19:25:44 iron + TIBC + ferritin, serum [address] [place] [address], [address] [place] [address], [id number], 05/25/2025 19:25:44 TSH + free T4, serum [address] [place] [address], [address] [place] [address], [id number], 05/25/2025 19:25:43 T3, free, serum or plasma [address] [place] [address], [address] [place] [address], [id number], 05/25/2025 19:25:43 fecal occult blood, immunoass ay, stool [address] [place] [address], [address] [place] [address], [id number], 05/25/2025 19:25:43 CBC w/ auto diff [address] [place] [address], [address] [place] [address], [id number], 05/25/2025 19:25:44 hemoglobi n A1C/hemog lobin total, QN, blood 2024 025 [facility], [address] [facility], [place], [address], 02/23/2025 19:21:06 lipid panel, serum 2024 025 [facility], [address] [facility], [place], [address], 03/01/2025 17:29:03 CMP, serum or plasma 2024 025 [facility], [address] [facility], [place], [address], 03/01/2025 17:28:59 retic count, blood 2024 025 [facility], [address] [facility], [place], [address], 03/01/2025 17:28:59 iron + TIBC + ferritin, serum 2024 025 [facility], [address] [facility], [place], [address], 02/23/2025 19:21:06 vitamin B12 + folate, serum or blood 2024 025 [facility], [address] [facility], [place], [address], 02/23/2025 19:21:07 TSH + free T4, serum 2024 025 [facility], [address] [place], [address], 02/23/2025 19:21:08 T3, free, serum or plasma 2024 025 [facility], [address] [place], [address], 03/01/2025 17:29:01 fecal occult blood, immunoass ay, stool 2024 025 [facility], [address] [facility], [place], [address], 02/23/2025 19:21:08 CBC w/ auto diff 2024 025 [facility], [address] [facility], [place], [address], 03/01/2025 17:28:58 Referral otolaryng ologist referral 2024 025 [facility], [address] [place], [address], 06/10/2025 23:16:00 gynecolog ist referral 2024 025 balb[facility], [address] [place], [address], 02/23/2025 19:22:58 Procedures None recorded. Surgeries None recorded. Imaging MAMMO, screening , digital, bilateral [address] Patient Access Centralized Scheduling, Centralized Scheduling, [address] [place], [address], 06/01/2025 08:16:24 MAMMO, screening , digital, bilateral 2024 025 [facility] Patient Access Centralized Scheduling, Centralized Scheduling, [address] [facility] [place], [address], 03/02/2025 08:11:19 XR, chest, 2 view 2023 024 [facility], [address] [place] [address], [address], 08/18/2024 09:56:25 Medication Orders metformin ER 500 mg tablet,ex tended release 24 hr 2024 025 [facility], [address] [place], [address], 05/25/2025 19:25:47 Nurtec ODT 75 mg disintegr ating tablet 2024 025 [facility], [address] [place], [address], 05/25/2025 19:25:47 albuterol sulfate HFA 90 mcg/actua tion aerosol inhaler 2024 025 [facility], [address] [place], [address], 05/25/2025 19:25:46 Nurtec ODT 75 mg disintegr ating tablet 2024 025 [facility], [address] [place], [address], 02/23/2025 19:20:51 Depakote 125 mg tablet,de layed release 2024 025 [facility] [address] [place], [address], 02/23/2025 19:20:51 cefdinir 300 mg capsule 2023 025 [facility], [address] [place], [address], 02/23/2025 18:52:18 Mucinex 1,200 mg tablet, extended release 2023 025 [facility], [address] [place], [address], 02/23/2025 18:53:16 cefdinir 300 mg capsule [address] [facility] 8[facility], [address], [address], 02/23/2025 18:52:15 Mucinex 1,200 mg tablet, extended release [address] [facility] 8233, [address], [address], 02/23/2025 18:53:14 Patient TargetsNo targets recorded. Patient Instructions Encounter Date Encounter Id Patient Instructions Last Modified By Organization Details Last Modified Time 08/16/2024 [id number] advised to lose weight Not available 08/16/2024 20:54:37 If you have any difficulty breathing, chest tightness/chest pain or increasing weakness or any increasing symptoms, or if pulse oximeter less than 90% --> you must go to the Emergency Room to evaluate for Pneumonia. Not available 08/16/2024 20:55:32 02/23/2025 [id number] advised to lose weight Not available 02/23/2025 19:20:49 Discussed and explained advance directives such as standard forms to the . Face to face discussion lasted for a duration of ___ minutes. [email or web address] Not available 02/23/2025 18:01:21 05/25/2025 [id number] advised to lose weight 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 6 high BENEDICT L RANGE BASED ON KASH COL 2 (DCCT /NGSP ): Non-D iabet ic: < 5.7% Pre-D iabet es: 5.7 - 6.4% Diabe hernán: => 6.5% GLYCE AMY CONTR OL: < 7.0% Not Available [facility] [address], [place], [address], 03/01/2025 17:28:57 02/25/20 25 02/24/2025 HEMOG LOBIN A1C estimated average glucose 122 Not Available [facility] [address], [place], [address], 03/01/2025 17:28:57 02/25/20 25 02/24/2025 CBC WITH AUTO- DIFFE RENTI AL WBC 8.2 10*3/ uL 3.4-10 .8 Not Available [facility] [address] [facility] [address], [place], [address], 03/01/2025 17:28:58 02/25/20 25 02/24/2025 CBC WITH AUTO- DIFFE RENTI AL RBC 4.90 10*6/ uL 3.80-5 .30 Not Available [facility] [address], [place], [address], 03/01/2025 17:28:58 02/25/20 25 02/24/2025 CBC WITH AUTO- DIFFE RENTI AL HGB 13.0 g/dL 11.1-1 5.9 Not Available [facility] [address], [place], [address], 03/01/2025 17:28:58 02/25/20 25 02/24/2025 CBC WITH AUTO- DIFFE RENTI AL HCT 42.2 % 34.0-4 6.6 Not Available [facility] [address] [facility] [address], [place], [address], 03/01/2025 17:28:58 06/12/20 25 02/24/2025 CBC WITH AUTO- DIFFE RENTI AL MCV 86 fL 79-97 Not Available [facility] [address], [place], [address], 03/01/2025 17:28:58 02/25/20 25 02/24/2025 CBC WITH AUTO- DIFFE RENTI AL MCH 26.5 pg 26.6-3 3.0 low Not Available [facility] [address], [place], [address], 03/01/2025 17:28:58 02/25/20 25 02/24/2025 CBC WITH AUTO- DIFFE RENTI AL MCHC 30.8 g/dL 31.5-3 5.7 low Not Available [facility] [address], [place], [address], 03/01/2025 17:28:58 02/25/20 25 02/24/2025 CBC WITH AUTO- DIFFE RENTI AL RDW 14.3 % 11.5-1 4.5 Not Available [facility] [address], [place], [address], 03/01/2025 17:28:58 02/25/20 25 02/24/2025 CBC WITH AUTO- DIFFE RENTI AL platelets 247 10*3/ uL 150-40 0 Not Available [facility] [address], [place], [address], 03/01/2025 17:28:58 02/25/20 25 02/24/2025 CBC WITH AUTO- DIFFE RENTI AL MPV 11 fL 9-13 Not Available [facility] [address], [place], [address], 03/01/2025 17:28:58 02/25/20 25 02/24/2025 CBC WITH AUTO- DIFFE RENTI AL neutrophils 53.1 % 40.0-7 4.0 Not Available [facility] [address] [facility] [address], [place], [address], 03/01/2025 17:28:58 02/25/20 25 02/24/2025 CBC WITH AUTO- DIFFE RENTI AL absolute neutrophils 4.34 10*3/ uL 1.40-7 .00 Not Available [facility] [address] [facility] [address], [place], [address], 03/01/2025 17:28:58 02/25/20 25 02/24/2025 CBC WITH AUTO- DIFFE RENTI AL lymphocytes 34.7 % 14.0-4 6.0 Not Available [facility] [address] [facility] [address], [place], [address], 03/01/2025 17:28:58 02/25/20 25 02/24/2025 CBC WITH AUTO- DIFFE RENTI AL absolute lymphocytes 2.84 10*3/ uL 0.70-3 .10 Not Available [facility] [address] [facility] [address], [place], [address], 03/01/2025 17:28:58 02/25/20 25 02/24/2025 CBC WITH AUTO- DIFFE RENTI AL monocytes 8.2 % 4.0-12 .0 Not Available [facility] [address] [facility] [address], [place], [address], 03/01/2025 17:28:58 02/25/20 25 02/24/2025 CBC WITH AUTO- DIFFE RENTI AL absolute monocytes 0.67 10*3/ uL 0.10-0 .90 Not Available [facility] [address] [facility] [address], [place], [address], 03/01/2025 17:28:58 02/25/20 25 02/24/2025 CBC WITH AUTO- DIFFE RENTI AL eosinophils 2.8 % 0.0-5. 0 Not Available [facility] [address] [facility] [address], [place], [address], 03/01/2025 17:28:58 02/25/20 25 02/24/2025 CBC WITH AUTO- DIFFE RENTI AL absolute eosinophils 0.23 10*3/ uL 0.00-0 .40 Not Available [facility] [address] [facility] [address], [place], [address], 03/01/2025 17:28:58 02/25/20 25 02/24/2025 CBC WITH AUTO- DIFFE RENTI AL basophils 0.6 % 0.0-3. 0 Not Available [facility] [address] [facility] [address], [place], [address], 03/01/2025 17:28:58 02/25/20 25 02/24/2025 CBC WITH AUTO- DIFFE RENTI AL absolute basophils 0.05 10*3/ uL 0.00-0 .20 Not Available [facility] [address] [facility] [address], [place], [address], 03/01/2025 17:28:58 02/25/20 25 02/24/2025 CBC WITH AUTO- DIFFE RENTI AL imm. gran. 0.6 % 0.0-2. 0 Not Available [facility] [address] [facility] [address], [place], [address], 03/01/2025 17:28:58 02/25/20 25 02/24/2025 CBC WITH AUTO- DIFFE RENTI AL abs. imm. gran. 0.05 10*3/ uL 0.00-0 .10 Not Available [facility] [address] [facility] [address], [place], [address], 03/01/2025 17:28:58 02/25/20 25 02/24/2025 RETIC ULOCY TE COUNT RBC 4.86 10*6/ uL 3.80-5 .30 Not Available [facility] [address] [facility] [address], [place], [address], 03/01/2025 17:28:59 02/25/20 25 02/24/2025 RETIC ULOCY TE COUNT reticulocyte count 2.3 % 0.6-2. 6 Not Available [facility] [address] [facility] [address], [place], [address], 03/01/2025 17:28:59 02/25/20 25 02/24/2025 RETIC ULOCY TE COUNT absolute reticulocyte 0.111 10*6/ uL 0.016- 0.078 high Not Available [facility] [address] [facility] [address], [place], [address], 03/01/2025 17:28:59 02/25/20 25 02/24/2025 COMPR EHENS CELSO METAB OLIC PANEL sodium 138 mmol/ L 134-14 4 Not Available [facility] [address] [facility] [address], [place], [address], 03/01/2025 17:28:59 02/25/20 25 02/24/2025 COMPR EHENS CELSO METAB OLIC PANEL potassium 4.4 mmol/ L 3.5-5. 2 Not Available [facility] [address] [facility] [address], [place], [address], 03/01/2025 17:28:59 02/25/20 25 02/24/2025 COMPR EHENS CELSO METAB OLIC PANEL chloride 105 mmol/ L 98-107 Not Available [facility] [address] [facility] [address], [place], [address], 03/01/2025 17:28:59 02/25/20 25 02/24/2025 COMPR EHENS CELSO METAB OLIC PANEL carbon dioxide (co2) 26.0 mmol/ L 18.0-2 9.0 Not Available [facility] [address] [facility] [address], [place], [address], 03/01/2025 17:28:59 02/25/20 25 02/24/2025 COMPR EHENS CELSO METAB OLIC PANEL glucose 86 mg/dL 65-99 Benedict l Fasti n - 99 mg/dL Impai red Fasti n - 125 mg/dL Diagn ostic of Diabe hernán: => 126 mg/dL Ameri can Diabe hernán Ass[employer] iatio n, 2007 Not Available [facility] [address] [facility] [address], [place], [address], 03/01/2025 17:28:59 02/25/20 25 02/24/2025 COMPR EHENS CELSO METAB OLIC PANEL urea nitrogen (BUN) 8 mg/dL 6-20 Not Available [facility] [address] [facility] [address], [place], [address], 03/01/2025 17:28:59 02/25/20 25 02/24/2025 COMPR EHENS CELSO METAB OLIC PANEL creatinine 0.71 mg/dL 0.57-1 .00 Not Available [facility] [address] [facility] [address], [place], [address], 03/01/2025 17:28:59 02/25/20 25 02/24/2025 COMPR EHENS CELSO METAB OLIC PANEL eGFR 109 mL/mi nute/ 1.73_ m2 >59 MDRD Study Equat ion: The calcu lated GFR is NOT appli cable for pedia tric (< 18 years old) and > 70 year old patie nts and patie nts that are NOT of stead y state . Not Available [facility] [address] [facility] [address], [place], [address], 03/01/2025 17:28:59 02/25/20 25 02/24/2025 COMPR EHENS CELSO METAB OLIC PANEL calcium 8.7 mg/dL 8.7-10 .2 Not Available [facility] [address] [facility] [address], [place], [address], 03/01/2025 17:28:59 02/25/20 25 02/24/2025 COMPR EHENS CELSO METAB OLIC PANEL protein, total 6.7 gm/dL 6.4-8. 3 Not Available [facility] [address] [facility] [address], [place], [address], 03/01/2025 17:28:59 02/25/20 25 02/24/2025 COMPR EHENS CELSO METAB OLIC PANEL albumin 3.8 gm/dL 3.5-5. 2 Not Available [facility] [address] [facility] [address], [place], [address], 03/01/2025 17:28:59 02/25/20 25 02/24/2025 COMPR EHENS CELSO METAB OLIC PANEL bilirubin, total 0.30 mg/dL 0.00-1 .20 Not Available [facility] [address] [facility] [address], [place], [address], 03/01/2025 17:28:59 02/25/20 25 02/24/2025 COMPR EHENS CELSO METAB OLIC PANEL alkaline phosphatase (ALP) 66 U/L 39-117 Not Available [facility] [address] [facility] [address], [place], [address], 03/01/2025 17:28:59 02/25/20 25 02/24/2025 COMPR EHENS CELSO METAB OLIC PANEL aspartate aminotransfe rase (AST) 17 U/L 0-32 Not Available [facility] [address] [facility] [address], [place], [address], 03/01/2025 17:28:59 02/25/20 25 02/24/2025 COMPR EHENS CELSO METAB OLIC PANEL alanine aminotransfe rase (ALT) 16 U/L 0-33 Not Available [facility] [address] [facility] [address], [place], [address], 03/01/2025 17:28:59 02/25/20 25 02/24/2025 COMPR EHENS CELSO METAB OLIC PANEL A/G ratio (calculated) 1.3 ratio 1.0-2. 7 Not Available [facility] [address] [facility] [address], [place], [address], 03/01/2025 17:28:59 02/25/20 25 02/24/2025 COMPR EHENS CELSO METAB OLIC PANEL globulin (calculated) 2.9 gm/dL 1.5-3. 8 Not Available [facility] [address] [facility] [address], [place], [address], 03/01/2025 17:28:59 02/25/20 25 02/24/2025 COMPR EHENS CELSO METAB OLIC PANEL BUN/creatini ne ratio (calculated) 11.3 ratio 8.0-20 .0 Not Available [facility] [address] [facility] [address], [place], [address], 03/01/2025 17:28:59 02/25/20 25 02/24/2025 COMPR EHENS CELSO METAB OLIC PANEL serum index hemolysis NORMAL index normal Not Available [facility] [address] [facility] [address], [place], [address], 03/01/2025 17:28:59 02/25/20 25 02/24/2025 JEANA TIN ferritin 77 NG/mL 13-150 Not Available [facility] [address] [facility] [address], [place], [address], 03/01/2025 17:29:00 02/25/20 25 02/24/2025 FREE T3 triiodothyro nine (T3), free 3.17 pg/mL 2.00-4 .40 NOTE: REFER ENCE RANGE S FOR PATIE NTS < 16 YEARS OF AGE HAS NOT BEEN VALID ATED. FOR INFOR MATIO N ONLY. PREGN ANT FEMAL E: 1st Trime ster: 1.6-3 .3 pg/mL 2nd Trime ster: Not Estab lishe d 3rd Trime ster: 1.0-3 .2 pg/mL Not Available [facility] [address] [facility] [address], [place], [address], 03/01/2025 17:29:01 02/25/20 25 02/24/2025 FREE T4 thyroxine (T4), free 0.95 NG/dL 0.82-1 .77 Not Available [facility] [address] [facility] [address], [place], [address], 03/01/2025 17:29:02 02/25/20 25 02/24/2025 FOLAT E, SERUM folate 8.1 NG/mL 3.1-20 .0 REFER ENCE RANGE : Benedict l: > 3.0 ng/mL Inter media te: 2.2 - 3.0 ng/mL Defic ient: < 2.2 ng/mL Not Available [facility] [address] [facility] [address], [place], [address], 03/01/2025 17:29:02 02/25/20 25 02/24/2025 IRON PANEL iron 51 mcg/d L 27-159 Not Available [facility] [address] [facility] [address], [place], [address], 03/01/2025 17:29:03 02/25/20 25 02/24/2025 IRON PANEL UIBC 246 ug/dL 111-34 3 Not Available [facility] [address] [facility] [address], [place], [address], 03/01/2025 17:29:03 02/25/20 25 02/24/2025 IRON PANEL total iron binding capacity 297.0 mcg/d L 250.0- 450.0 Not Available [facility] [address] [facility] [address], [place], [address], 03/01/2025 17:29:03 02/25/20 25 02/24/2025 IRON PANEL iron saturation (calculated) 17.2 % 15.0-5 5.0 Not Available [facility] [address] [facility] [address], [place], [address], 03/01/2025 17:29:03 02/25/20 25 02/24/2025 LIPID PANEL W/ CALC. LDL cholesterol, total 158 mg/dL 100-19 9 Not Available [facility] [address] [facility] [address], [place], [address], 03/01/2025 17:29:03 02/25/20 25 02/24/2025 LIPID PANEL W/ CALC. LDL HDL cholesterol 33 mg/dL =>40 Not Available [facility] [address] [facility] [address], [place], [address], 03/01/2025 17:29:03 02/25/20 25 02/24/2025 LIPID PANEL W/ CALC. LDL LDL cholesterol (calculated) 91 mg/dL 0-99 Not Available [facility] [address] [facility] [address], [place], [address], 03/01/2025 17:29:03 02/25/20 25 02/24/2025 LIPID PANEL W/ CALC. LDL triglyceride s 170 mg/dL 50-149 high Not Available [facility] [address] [facility] [address], [place], [address], 03/01/2025 17:29:03 02/25/20 25 02/24/2025 LIPID PANEL W/ CALC. LDL chol/HDL ratio (calculated) 4.79 ratio 0.00-5 .00 Not Available [facility] [address] [facility] [address], [place], [address], 03/01/2025 17:29:03 02/25/20 25 02/24/2025 LIPID PANEL W/ CALC. LDL VLDL cholesterol (calculated) 34 mg/dL 5-40 Not Available [facility] [address] [facility] [address], [place], [address], 03/01/2025 17:29:03 02/25/20 25 02/24/2025 THYRO ID-ST IM. HORMO NE (TSH) thyroid-stim . hormone (TSH) 3.46 uIU/m L 0.27-4 .20 Not Available [facility] [address], [place], [address], 03/01/2025 17:29:04 02/25/20 25 02/24/2025 VITAM IN B12 vitamin B12 402 pg/mL 232-12 45 Not Available [facility] [address] [facility] [address], [place], [address], 03/01/2025 17:29:05 08/18/20 24 08/17/2024 XR, chest , 2 view No observ ation record ed. [address] [address], [place], [address], 08/19/2024 11:41:58 08/30/20 24 08/30/2024 alison metry testi ng* No observ ation record ed. [address], [facility] [address], [place], [address], 02/23/2025 19:22:47 02/14/20 25 02/13/2025 XR, chest , 2 view No observ ation record ed. [address] [facility], [place], [address], 02/23/2025 19:22:47 04/25/20 25 04/25/2025 MAMMO , scree stephen, digit al, bilat eral No observ ation record ed. [address], [address], 05/25/2025 19:26:36 Result Notes None recorded. Problems Name Problem SNOMED Code Status Onset Date Resolution Date Notes Provider Name and Address Organization Details Recorded Time Anemia 968147846 Active 2012 Karley Nguyen [facility] [place] - [facility] 0 10:19:00 Seizure disorder 513302441 Active 2022 Alok Lucas MD [address], [place], [address] , [facility] 3 14:01:08 Migraine 00635456 Active 2022 MD Guanako Rogers[address], [place], , [facility] 3 14:01:28 Asthma 663467269 Active 2022 MD Izabella Rogers [address], [place], , [facility] 3 14:01:28 Hyperlipid emia 29932503 Active 2022 MD Izabella Rogers [address], [place], , [facility] 3 14:01:28 Impaired glucose tolerance 7344779 Active 2022 MD Izabella Rogers [address], [place], , [facility] 3 14:01:28 Anxiety 17819259 Active 2022 MD Guanako Rogers[address], [place], , [facility] 3 14:04:03 Edema 639382291 Active 2022 MD Guanako Rogers[address], [place], , [facility] 3 17:53:44 Sprain of right ankle 7759022992704 9105 Active 2022 MD Izabella Rogers [address], [place], , [facility] 3 18:06:01 Acute pharyngiti s 751388959 Active 2022 MD Guanako Rogers[address], [place], , [facility] 3 18:46:44 Backache 338190225 Active 2022 MD Izabella Rogers [address], [place], [address] , [facility] 3 12:39:37 Leukocytos is 720551433 Active 2022 MD Izabella Rogers [address], [place], [address] , [facility] 3 17:55:55 Abdominal pain 46228879 Active 2022 MD Izabella Rogers [address], [place], [address] , [facility] 3 11:08:35 Upper abdominal pain 33888149 Active 2022 MD Izabella Rogers [address], [place], [address] , [facility] 3 11:11:46 Upper respirator y infection 86712912 Active 2022 MD Izabella Rogers [address], [place], , [facility] 3 08:34:37 Atypical chest pain 444736273 Active 2022 MD Izabella Rogers [address], [place], , [facility] 3 09:26:44 Problem Notes None recorded. Procedures Surgical History Date Name Laterality Status Provider Name and Address Organization Details Recorded Time 04/25/20 Date of [facility] 18:23:26 04/03/20 Date of Last Pap Smear completed Ashly Nad[facility] 06/28/2022 08:59:24 08/06/20 11 Caesarean Section completed [facility] 04/25/2020 14:50:38 06/06/20 09 Hernia Repair completed MD Izabella Rogers [address], [place], [address], [facility] 04/11/2022 19:14:27 12/29/19 09 Caesarean Section completed [facility] 04/25/2020 14:50:35 11/22/19 06 Caesarean Section completed [facility] 04/25/2020 14:50:44 Partial Hysterectomy completed MD Izabella Rogers [facility] [address], [place], [address], [facility] 09/10/2021 17:06:21 Tubal Ligation completed MD Izabella Rogers [facility] [address], [place], [address], [facility] 09/10/2021 17:06:46 endometrial ablation completed MD Izabella Rogers [facility] [address], [place], [address], [facility] 04/11/2022 19:13:43 Imaging Results None recorded. Procedure Notes None recorded. Medical Equipment None Reported. Allergies Allergen ID Allergen Name Allergen Category Reaction Reaction Severity Criticality Documentation Date Start Date Code Code System Note Provider Name and Address Organization Details Recorded Time 60895 honey bee venom environme nt itching swelling Not available Not available high 06/01/20252020 70572 7 RxNorm Not Available [employer] - External Data [employer] - prod 5 10:55:03 24905 Iodinated contrast media (substanc e) medicatio n itching Not available low 06/01/20252022 83395 2004 SNOMED Not Available [employer] - External Data Service - prod 5 10:55:03 42133 shrimp allergeni c extract food other Not available low 06/01/20252022 50009 2 RxNorm Throa t closi ng Not Available [employer] - External Data Service - prod 5 10:55:03 9189 Product containin g penicilli n (product) medicatio n hives rash Not available Not available Not available 04/25/2020 84431 8001 SNOMED [facility] 0 10:14:00 9190 bee pollen environme nt,medica tion edema Not available Not available 04/25/2020 35838 7 RxNorm Karley Patrick [facility] 0 14:45:43 9873 honey bee venom medicatio n itching swelling Not available Not available Not available 03/23/2021 18218 7 RxNorm Katie Raman od [facility] 1 09:41:05 Medications Name Sig Start [...] Not Available Not Available No t Available norethind vira (contrace ptive) 0.35 mg tablet 02/23 completed [...] and Address Organization Details Last Updated DateTime 4 170.18 cm 87 /min 16 /min 98 [degF] 37.7 kg/m2 793610. 76 g 116/76 mm[Hg] [facility] 4 13:07:25 Date Recorded Body height Heart rate Respiratory rate Body temperature Body mass index (BMI) Body weight Systolic And Diastolic Provider Name and Address Organization Details Last Updated DateTime 5 170.18 cm 85 /min 16 /min 97.7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 HIV on 06/04/23 Active or passive immunization 140103527 Z23 -- pt does not want Tdap, Flu or Pneumonia shot Screening for malignant neoplasm of breast 218299071 Z12.31 -- pt reported she just did her screening mammogram on 12/13/23 Gynecologi c examination 35515734 Z01.419 -- pt saw Testing Coordinator Dr Bradford Capps on 11/17/23, & her next visit f/u with Dr Capps will be on 05/19/24 Sleep apnea 22143220 G47 .30 25172245 -- issued by Sleep specialist Dr Cristian Gonzalez-- pt states she cannot tolerate the CPAP mask due to claustroph obia Severe obesity 018485231 1 9104 E66.812 E66.01 Z68.38 2104603639 -- advised weight loss; pt gained 10 # since her last visit-- pt's BMI todayis 38.4 (ideal is between 20-25) [id number] Alok Lucas MD [employer] [address] [facility] [address] [address] 05/25/2025 16:43:46 05/25/2025 19:28:33 Seizure disorder 424713797 G40.909 74365 -- last Seizure (staring episode) was December 2024 (pt advised no driving within 6 months from a seizure episode)-- still sz free since Neurologis t took her off Depakote-- pt has appt scheduled w/ Neurologjade De Leon on 06/14/25 but will be on cancelatio n list Mild inter mittent asthma 644638208 J45.20 1732711 -- spirometry done 08/30/24-- last inhaler use was in the beginning of January 2025 Hyperlipidemia 65503021 E78.5 -- you will need to limit [...] &/or Alcohol.-- check lab(s) around 08/25/25 Anemia 891125408 D64.9 -- normalized on labs done on 06/14/22-- no cycles since Lap Hysterecto my in December 2017-- check lab(s) around 08/25/25 Sleep apnea 12209272 G47 .30 67761408 -- issued by Sleep specialist Dr Cristian Gonzalez-- pt states she cannot tolerate the CPAP mask due to claustroph obia Migraine 36171734 G43.90 9 -- markedly improved since she eliminated a lot of stress from her life (by cutting out certain people in her life) Impaired g lucose tolerance 8088565 R73.02 A1c 5.9 (04/20/21) --> 5.8 (12/12/21) ) --> 5.7 (06/14/22) --> 5.9 (04/10/23) -- check lab(s) around 08/25/25 Anxiety 11782604 F41.9 -- doing well in spite of not on any meds 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 -- no recurrence Severe obesity 823845215 1 9104 E66.812 E66.01 Z68.38 5806267623 -- advised weight loss; no weigh change since her last visit-- pt's BMI todayis 38.4 (ideal is between 20-25) Hepatitis C screening 41 5678029 Z11.59 -- tested negative for Hepatitis C on 04/25/20 HIV screening 229410343 Z11.4 -- tested negative for HIV on 06/04/23 Active or passive immunization 388619687 Z23 -- pt does not want Tdap, Flu or Pneumonia shot Screening for malignant neoplasm of breast 214466175 Z12.31 -- screening mammogram done 04/25/25 Gynecologi c examination 03242992 Z01.419 -- pt reports she has appt with Testing Coordinator Dr Bradford Capps on Fri06/01/25 Nasal obstruction 598926 000 J34.89 42826 (left nose -- blows out'patch every AM) Health Concerns Section Related Observation LastModified by Organization Detai ls LastModified Time None Recorded Concern Status LastModified by Organization Details LastModified Time None Recorded Advance Directives Directive N: Payers Insurance Date Sequence Insurance Name Policy Number Policy Hansen Covered Member ID Hansen Member ID Guarantor Name 06/06/2025 1 [employer] [id number] Brittany Nava [id number] Brittany Nava 05/19/2025 1 [place] [id number] Brittany Nava [id number] Brittany Nava 02/11/2024 1 *SELF PAY* As timbo Nava 05/19/2025 1 [place] [facility]ID Brittany Nava [id number] Brittany Nava Notes Date Note Type Note Provider Name and Address Organization Details Recorded Time 02/11/2024 text/html Pt comes in for ER f/u of Migraines -- resolved after IV fluids but pt still has cough w/ green phlegm and sinus pressure. Had bodyaches and loose stool x 2 days (gone now). Pt denies any visual sx, speech problems, memory or confusion problems, focal muscle weakness, numbness /tingling, unsteady balance or gait, coordination problems, urinary or bowel incontinence. MD Guanako Rogers2 [facility] [address], [place], [address], [facility] 02/11/2024 13:55:13 08/16/2024 text/html Pt comes in w/ c/o chlls, sinus drainage for a month now and just woke up with a sore throat and cough -- pt was tested Covid Neg on Friday. She also has chest pain when bending over. No diarrhea, bodyaches, SHARP/SOB or increasing headaches. Pt feels well and has no c/o. Pt has no new sx and no increasing sx. Patient denies any jaw or neck discomfort, left arm pain/left arm discomfort, chest discomfort/pain, diaphoresis, breathing symptoms/chest tightness, indigestion sx, n/v, any angina equivalent symptoms, etc. MD Guanako Rogers2 [facility] [address], [place], [address], [facility] 08/16/2024 20:55:37 08/30/2024 text/html Pt started with cough on 08/27/24. No f/c, n/v, bodyaches, diarrhea, or chest pain. No PND, Orthopnea or ankle swelling. Pt took a breathing treatment at work and she felt great very fast, and was more productive a work. Not Available Not Available Not Available 02/23/2025 text/html Pt comes in for ER f/u for seizures (no recurrence). Pt also due for annual PE. Pt feels well and has no c/o. Pt has no new sx and no increasing sx. Patient denies any jaw or neck discomfort, left arm pain/left arm discomfort, chest discomfort/pain, diaphoresis, breathing symptoms/chest tightness, indigestion sx, n/v, any angina equivalent symptoms, etc. MD Izabella Rogers [facility] [address], [place], [address], [facility] 02/23/2025 19:26:13 05/25/2025 text/html Pt comes in for f/u [...] angina equivalent symptoms, etc. Alok Lucas MD [address] [facility] [address], [place], [address], [facility] 05/25/2025 19:28:47 OBGyn Episode No OBEpisode recorded.
== END 2025-08-10 15:39 | disposition home or self-care (01) ==
PROVIDERS: PCP Internal Medicine; Visit Provider Psychiatry & Neurology Neurology
DX: G40.909 Epilepsy, unspecified, not intractable, without status epilepticus (principal); J32.0 Chronic maxillary sinusitis
CPT/HCPCS: 70551